=== PATIENT | female | born 1935 | race Caucasian/White ===

== ENCOUNTER → 2017-05-08 | Outpatient (CLI) | payer MEDICARE, BC ==
[~2017-05-08] MED LIST: ACTIVELLA1 TAB PO; ADULT LOW DOSE81 MG PO; AMITRIPTYLINE H10 M3 PO; AMITRIPTYLINE H50 M2 PO; AMLODIPINE BESYL5 M1 PO; ASPIRIN EC81 M1 PO; ASPIRIN325 PO; AXERT12.5 MG PO; BONIVA150 MG PO; CALCIUM 500 +1 EAC5 PO; CARVEDILOL12.5 MG; CARVEDILOL12.5 MG PO; CELEBREX 200 M200 MG PO; CLEOCIN HCL150 MG PO; CYMBALTA20 MG PO; CYMBALTA30 MG PO; CYMBALTA60 MG PO; DEXILANT60 MG PO; DILAUDID 2 MG TA2 MG PO; DILAUDID 4 MG TA4 M1 PO; DILAUDID 4 MG TA4 MG PO; DILAUDID PO; DOCUSATE SODIU100 MG PO; DOXYCYCLINE150 MG PO; ESTRADIOL; ESTRADIOL PO; ESTRADIOL-NORE1 EAC2 PO; FLEXERIL PO; FOLIC ACID 40400 MCG PO; FOLIC ACID PO; GABAPENTIN 100100 MG PO; GLUCOPHAGE1000 MG PO; GLUCOPHAGE500 MG PO; HYDROCHLOROTH12.5 M1 PO; HYDROCHLOROTH12.5 MG PO; HYDROCODON-ACE1 EAC5 PO; HYDROCODON-ACE1 EAC7 PO; IMITREX100 MG PO; IRON325 M1 PO; KETOCONAZOLE; KLOR-CON 1010 MEQ PO; LAMISIL AF133 GM TP; LANTUS SC; LASIX 40 MG TAB40 M2 PO; LEVOTHROID50 MCG PO; LEVOTHYROXINE0.05 MG PO; LISINOPRIL10 MG PO; LISINOPRIL20 MG PO; LYRICA 50 MG50 MG PO; MELATONIN PO; METFORMIN 500500 MG PO; METHADONE HCL 110 M1 PO; METHADONE HCL5 MG PO; MOBIC15 MG PO; MUCINEX D TABL1 EACH PO; MULTIVITAMINS PO; MYRBETRIQ25 MG PO; NEURONTIN 300300 M1 PO; NEURONTIN300 MG PO; NEURONTIN600 MG PO; NORETHINDRONE; NORETHINDRONE PO; NORVASC5 MG PO; NOVOLOG100 UNIT/1 SUBQ; NYAMYC15 GM TOP; NYSTATIN 1100000 U/M PO; ORADENT 0.1% DEN5 G1; OXYCODONE HCL 55 MG PO; OXYCODONE HCL20 M1 PO; OXYCONTIN CR 1010 M1; OXYCONTIN10 M1 PO; OXYCONTIN20 M1 PO; PAXIL10 MG PO; PERCOCET 7.5-31 EACH PO; PERCOCET PO; PHENERGAN 25 MG25 M1 PO; PRINIVIL20 M1 PO; PROBIOTIC1 EAC1 PO; PROTONIX40 M1 PO; RANITIDINE HCL300 M1 PO; REMERON15 MG PO; SKELAXIN 800 M800 M1 PO; SULFASALAZINE500 M1 PO; SULFASALAZINE500 M4 PO; SULFAZINE EC500 MG PO; SUMATRIPTAN SU100 MG PO; TERBINAFINE HC250 MG PO; TOUJEO SOL300 UNIT/1 SQ; TRICOR145 MG PO; VICODIN 5-5001 EACH PO; VITAMIN D 5050000 I1 PO; VITAMIN D1000 UNI1; VOLTAREN GEL 1100 G1 TOP; XARELTO10 M1 PO; ZEGERID 20 MG1 EACH PO; ZYRTEC10 MG PO
--- NOTE | 2017-05-09 10:21 | PAINCON ---
[facility] [address] [place] [address] PAIN MANAGEMENT CONSULTATION Name: ANNITA ODEN Room: [facility]#: [id number] Admission: 05/08/17 Attend Phys: Hernán Alfred Discharge: Date of : 37 Report #: [id number] THIS REPORT FOR: //name// CC: Gallito Oden HISTORY OF PRESENT ILLNESS: The patient is an 82-year-old female being treated for chronic pain syndrome, axial back pain, cervical radiculopathy, lumbar radiculopathy, myofascial pain requiring complex medication management. Last seen in pain clinic on 02/27/2017. The patient was continued on methadone 5 mg t.i.d., Percocet 7.5/325 t.i.d. for breakthrough pain. Buccal drug swab was accomplished at that time. The patient returns to pain clinic today noting medications are providing sufficient analgesia to participate in activities of daily living. Notes current pain score 8-9 on a VAS. Pain primarily right low back, right greater than left knee. Subjective weakness in both legs. She notes pain continues to be problematic though medication is helpful. She notes again pain is an 8-9 on a VAS. She does not use tobacco products. PHYSICAL EXAMINATION: VITAL SIGNS: Shows 5 feet 1 inch, 202 pounds female, BMI is elevated at 38.4 kilograms per meter squared. Blood pressure 160/71, pulse 70, respirations 18. NEUROLOGIC: Cranial nerves 2-12 are grossly intact. She had prior had a bleed in the left eye. Visual acuity is improving, but they are trying diligently to keep her blood pressure low. Subjective paresthesia in her hands, though this is intermittent, currently grasp is good and Tinel's is negative bilaterally. Rises from chair using the armrest. Gait is antalgic. She uses a walker and/or cane. Balance is poor, though she has not fallen in the last 2 months. Diffuse tenderness across the low back. Discussion with the patient today. She states she always uses a cane when she is outside. She does some "furniture walk" in the home. She uses a walker for longer ambulation. She notes medications are generally providing sufficient analgesia to participate in activities of daily living. No problems with daytime somnolence, mental acuity changes nor constipation. We reviewed the fact that opiate medications are being used to provide analgesia adequate to support activities of daily living, not attempting to achieve a specific pain score on the 0-10 Visual Analog Scale. The current opiate medications are providing sufficient analgesia to allow the patient to participate in activities of daily living. The patient is not exhibiting any aberrant behavior suggestive of drug diversion. The patient is not having any adverse reactions to medications. The patient is not suffering from daytime somnolence or mental acuity changes. The patient is managing opiate-induced constipation with appropriate foyw-imk[place] [address] PAIN MANAGEMENT CONSULTATION Name: ANNITA ODEN Room: [facility] Karolyn#: [id number] Admission: 05/08/17 Attend Phys: Hernán Alfred Discharge: Date of : 39 Report #: [id number] considerations. The patient was counseled on concern for caution with operating a motor vehicle while using opiate medications. A physical exam was performed and the patient's functional status was evaluated. All patients with back pain were advised against the bed rest greater than 4 days and were advised to return to normal activities. Pain score assessment was noted and the treatment plan was reviewed with the patient. All current medications, both prescribed and OTC were reviewed and reconciled on the electronic medical record. Tobacco screening was accomplished and smoking cessation was advised when indicated. BMI was noted and diet/exercise modification was recommended for all patients following outside normal parameters. I reviewed with the patient today their responsibilities to safeguard prescription medications, reviewed their responsibility to utilize medications only as prescribed by the physician. They are to seek and receive pain medications only from 1 physician group ( [facility]). They are to use 1 pharmacy and keep the clinic informed if they change pharmacies. Their responsibilities include making followup visits in a timely fashion and to avoid abrupt discontinuation of medication usage. Their responsibilities further include bringing their medications (bottles from the pharmacy with residual pills) to the visit for possible confirmation of pill counts and the patient understands it is their responsibility to submit to random drug screens to ensure both that the medications prescribed are present, and that no other controlled substances are present. All prescriptions provided today were generated electronically. ASSESSMENT: Chronic pain syndrome, history of both cervical and lumbar radiculopathy, myofascial pain requiring complex medication management, stable on baseline medication. RECOMMENDATION: I recommended the patient continue physical therapy, she was given exercises to do and she does some 4 or 5 out of 7 days at home. I have taken the liberty of renewing current medication unchanged. Follow up in 2 months for reevaluation. <ELECTRONICALLY SIGNED> By: Wolf Oden DO 05/09/17 1021 1217 1815Wolf Oden DO /nt
== END ==
LOC: M.PC 04-24 01:32
DX: M54.12 Radiculopathy, cervical region (principal); M54.16 Radiculopathy, lumbar region; M79.1 Myalgia; Z79.899 Other long term (current) drug therapy

== ENCOUNTER 2017-06-21 20:40 | Emergency (ER) | payer MEDICARE, BC ==
[~2017-06-21] VITALS: Ht 154.9 cm; Wt 92.3 kg
[~2017-06-21 20:40] MED LIST changes: -IMITREX100 MG PO; -LAMISIL AF133 GM TP; -NYAMYC15 GM TOP; -SUMATRIPTAN SU100 MG PO; -TERBINAFINE HC250 MG PO
[2017-06-21 20:55] VITALS: BP 203/83
[2017-06-21 21:31] LABS: ABSOLUTE BASOPHILS 0.1 thou/uL (0.0-0.2); ABSOLUTE EOSINOPHILS 0.8 thou/uL (0.0-0.7); ABSOLUTE LYMPHOCYTES 1.4 thou/uL (0.8-5.3); ABSOLUTE MONOCYTES 0.9 thou/uL (0.0-1.2); BASOPHILS 0.7 %; EOSINOPHILS 5.9 %; HEMATOCRIT 41.5 % (37.0-47.0); HEMOGLOBIN 13.5 gm/dL (12.0-15.0); MCH 31.1 pg (26.0-34.0); MCHC 32.6 g/dL (28.0-37.0); MCV 95.4 fL (80.0-100.0); MONOCYTES 6.9 %; MPV 8.8 fl. (7.2-11.1); NUCLEATED RBCS 0 /100WBC; PLATELET COUNT* 218 thou/uL (150-400); POLYS 75.5 %; RBC 4.35 mil/uL (4.20-5.00); RDW-CV 12.6 % (10.5-14.5); WBC 13.2 thou/uL (4.0-11.0)
[2017-06-21 21:32] LABS: URINE BILIRUBIN NEGATIVE (Negative); URINE BLOOD TRACE (Negative); URINE CLARITY CLEAR; URINE COLOR YELLOW; URINE GLUCOSE-RANDOM NEGATIVE (Negative); URINE KETONES NEGATIVE (Negative); URINE LEUKOCYTES-REFLEX NEGATIVE (Negative); URINE NITRITE-REFLEX NEGATIVE (Negative); URINE PROTEIN 1+ (Negative); URINE UROBILINOGEN 0.2 E.U./dl (0.2-1.0)
[2017-06-21 21:39] LABS: ANION GAP 5 mmol/L (7-16); BUN 18 mg/dL (7-18); CALCIUM 9.8 mg/dL (8.5-10.1); CHLORIDE 101 mmol/L (98-107); CO2 31 mmol/L (21-32); CREATININE 0.8 mg/dL (0.6-1.3); GLUCOSE 125 mg/dL (70-99); POTASSIUM 4.3 mmol/L (3.5-5.1); SODIUM 137 mmol/L (136-145)
[2017-06-21 21:46] LABS: ALBUMIN 3.5 g/dL (3.4-5.0); ALKALINE PHOSPHATASE 84 U/L (46-116); LIPASE 130 U/L (73-393); SGOT 21 U/L (15-37); SGPT 35 U/L (30-65); TOTAL BILIRUBIN 0.5 mg/dL (<0.1-1.0); TOTAL PROTEIN 7.3 g/dL (6.4-8.2); TROPONIN-I LEVEL <0.06 ng/mL (<0.06)
--- NOTE | 2017-06-22 01:28 | NUR ---
Risks of leaving against medical advice discussed with pt, understanding verbalized. AMA form signed at this time.
[2017-06-22 01:33] VITALS: BP 183/59
--- NOTE | 2017-06-22 14:37 | EKG ---
[place] [address] ELECTROCARDIOGRAM REPORT Name: ANNITA ODEN Room: [facility]#: [id number] Admission: 06/21/17 Attend Phys: Discharge: 06/22/17 Date of : 37 Report #: [id number] THIS REPORT FOR: //name// [facility] ED Test Date: 2017-06-21 Test Time: 21:15:14 Pat Name: ANNITA ODEN Department: Room: [facility] Gender: F General Scrap Worker: CECIL : 1935 Requested By: Rg Sheth Order Number: [id number] MD: Selvin Alves Measurements Intervals [place] Rate: 76 P: 52 LA: 172 QRS: -4 QRSD: 94 T: 75 QT: 371 QTc: 418 Interpretive Statements Sinus rhythm Probable left atrial enlargement Anterior infarct, old Compared to ECG 10/18/2014 18:50:34 Sinus tachycardia no longer present T-wave abnormality no longer present Possible ischemia no longer present Myocardial infarct finding still present Electronically Signed On 06-22-2017 14:37:16 CDT by Selvin Alves [email or web address] <ELECTRONICALLY SIGNED> By: Kareem Alves MD, [facility] 06/22/17 1437 14 14 Kareem Alves MD, [facility] /EPI
[2017-07-03] MEDS ORDERED: METHADONE HCL5 MG PO ×2 (10:31)
[2017-07-03] MEDS ORDERED: PERCOCET PO (10:31)
[2017-07-04] MEDS ORDERED: LAMISIL AF133 GM TP (15:11)
[2017-07-04] MEDS ORDERED: IMITREX100 MG PO (15:12)
[2017-08-28] MEDS ORDERED: NYAMYC15 GM TOP (09:59)
[2017-08-28] MEDS ORDERED: TERBINAFINE HC250 MG PO (09:59)
[2017-08-28] MEDS ORDERED: SUMATRIPTAN SU100 MG PO (10:00)
[2017-08-28] MEDS ORDERED: PROBIOTIC1 EAC1 PO (10:00)
[2017-08-28] MEDS ORDERED: PERCOCET PO (10:04)
[2017-08-28] MEDS ORDERED: METHADONE HCL5 MG PO ×4 (10:04→10:08)
[2017-10-24] MEDS ORDERED: PERCOCET PO (08:12)
[2017-10-24] MEDS ORDERED: METHADONE HCL5 MG PO ×3 (08:12→09:06)
[2017-11-21] MEDS ORDERED: PERCOCET PO (08:17)
[2017-11-21] MEDS ORDERED: METHADONE HCL5 MG PO ×3 (08:17→09:00)
[2017-12-19] MEDS ORDERED: METHADONE HCL5 MG PO ×4 (08:17→08:33)
[2017-12-19] MEDS ORDERED: PERCOCET PO ×2 (08:17→08:33)
[2018-01-16] MEDS ORDERED: PERCOCET PO (09:09)
[2018-01-16] MEDS ORDERED: METHADONE HCL5 MG PO ×2 (09:09)
== END 2017-06-22 01:34 | disposition left against medical advice (07) ==
LOC: M.ERS 20:40 → M.TBA-ER 23:05 → M.ERS 23:05
PROVIDERS: Emergency Medicine Emergency Medical Services
DX: K56.699 Other intestinal obstruction unspecified as to partial versus complete obstruction (principal); Z96.652 Presence of left artificial knee joint; E11.9 Type 2 diabetes mellitus without complications; Z88.5 Allergy status to narcotic agent; Z88.1 Allergy status to other antibiotic agents; Z88.0 Allergy status to penicillin; Z88.2 Allergy status to sulfonamides; Z88.8 Allergy status to other drugs, medicaments and biological substances

== ENCOUNTER → 2017-07-03 | Outpatient (CLI) | payer MEDICARE, BC ==
[~2017-07-03] MED LIST changes: +IMITREX100 MG PO; +LAMISIL AF133 GM TP; +NYAMYC15 GM TOP; +SUMATRIPTAN SU100 MG PO; +TERBINAFINE HC250 MG PO
--- NOTE | 2017-07-04 09:37 | PAINCON ---
[facility] [address] [place] [address] PAIN MANAGEMENT CONSULTATION Name: ANNITA ODEN Room: [facility]#: [id number] Admission: 07/03/17 Attend Phys: Hernán Alfred Discharge: Date of : 37 Report #: [id number] THIS REPORT FOR: //name// CC: Gallito Oden DATE OF SERVICE: 07/03/2017 The patient is an 82-year-old female being treated for chronic pain syndrome, axial back pain, history of cervical and lumbar radiculopathy requiring complex medication management. Last seen in the Pain Clinic on 05/08/2017. Continued on methadone 5 mg t.i.d., Percocet 7.5/325 t.i.d. Last random drug screen 02/27/2017 was positive prescribed medications. In the interval, since we last saw her, she was seen in the ER on 06/21/2017 for a blocked stoma. This was treated in the ER and she was discharged. She returns to pain clinic today noting medications continue to provide sufficient analgesia to participate in activities of daily living. Though she has remained fairly sedentary, she does walk her dog about 30 minutes twice a day. She does have some daytime somnolence. She attributes this to the fact that she "does not sleep at night." She states she does take a daily nap anywhere from 30 minutes to 2 hours, so I suspect she is getting adequate sleep overall. She discontinued Lyrica and Myrbetriq due to "terrible thoughts." States she has done reasonably well with current medication. We reviewed the fact that opiate medications are being used to provide analgesia adequate to support activities of daily living, not attempting to achieve a specific pain score on the 0-10 Visual Analog Scale. The current opiate medications are providing sufficient analgesia to allow the patient to participate in activities of daily living. The patient is not exhibiting any aberrant behavior suggestive of drug diversion. The patient is not having any adverse reactions to medications. The patient is not suffering from daytime somnolence or mental acuity changes. The patient is managing opiate-induced constipation with appropriate cvfa-hii-eaupxeb agents and dietary considerations. The patient was counseled on concern for caution with operating a motor vehicle while using opiate medications. A physical exam was performed and the patient's functional status was evaluated. All patients with back pain were advised against the bed rest greater than 4 days and were advised to return to normal activities. Pain score assessment was noted and the treatment plan was reviewed with the patient. All current medications, both prescribed and OTC [place] [address] PAIN MANAGEMENT CONSULTATION Name: ANNITA ODEN [id number] Admission: 07/03/17 Attend Phys: Hernán Alfred Discharge: Date of : 37 Report #: [id number] electronic medical record. Tobacco screening was accomplished and smoking cessation was advised when indicated. BMI was noted and diet/exercise modification was recommended for all patients following outside normal parameters. I reviewed with the patient today their responsibilities to safeguard prescription medications, reviewed their responsibility to utilize medications only as prescribed by the physician. They are to seek and receive pain medications only from 1 physician group ( [facility]). They are to use 1 pharmacy and keep the clinic informed if they change pharmacies. Their responsibilities include making followup visits in a timely fashion and to avoid abrupt discontinuation of medication usage. Their responsibilities further include bringing their medications (bottles from the pharmacy with residual pills) to the visit for possible confirmation of pill counts and the patient understands it is their responsibility to submit to random drug screens to ensure both that the medications prescribed are present, and that no other controlled substances are present. All prescriptions provided today were generated electronically. PHYSICAL EXAMINATION: Reveals a moderately obese 82-year-old female, BMI is 38 kg/m2. Blood pressure 161/57, pulse is 85, respirations 16. Subjective pain score is 5 on a VAS. Complains of pain across the back and bilateral knees. Ostomy working well. Rises from chair using armrest. Gait is tandem. The patient is again quite sedentary. She does use a walker to help with balance when she is outside. The patient reports about 50% improvement of baseline pain with current medication. She does use Cymbalta 30 mg at bedtime. ASSESSMENT: Chronic axial back pain. The patient with history of lumbar and cervical radiculopathy and chronic pain syndrome. RECOMMENDATION: Continue methadone 5 mg t.i.d., Percocet 7.5/325 up to t.i.d. I have taken the liberty of writing for 2 months of current medication. Follow up at that time or earlier if needed. <ELECTRONICALLY SIGNED> By: Wolf Oden DO 07/04/17 0937 1517 [id number] Oden DO /nt
== END ==
LOC: M.PC 04:37
DX: G89.4 Chronic pain syndrome (principal); M54.16 Radiculopathy, lumbar region; M54.12 Radiculopathy, cervical region

== ENCOUNTER → 2017-07-05 | Outpatient (CLI) | payer MEDICARE, BC | LOC: M.RAD 08:35 | DX: K59.00 Constipation, unspecified (principal); K52.9 Noninfective gastroenteritis and colitis, unspecified ==

== ENCOUNTER → 2017-08-28 | Outpatient (CLI) | payer MEDICARE, BC ==
--- NOTE | 2017-08-29 07:56 | PAINCON ---
[address] [address] PAIN MANAGEMENT CONSULTATION Name: ANNITA ODEN Room: [facility]#: [id number] Admission: 08/28/17 Attend Phys: Hernán Alfred Discharge: Date of : 37 Report #: [id number] THIS REPORT FOR: //name// CC: Gallito Oden DATE OF SERVICE: 08/28/2017 HISTORY OF PRESENT ILLNESS: The patient is an 82-year-old female being treated for axial back pain, both cervical and lumbar decompressive laminectomies, chronic pain syndrome requiring complex medication management. Last seen in the pain clinic on 07/03/2017, continued on methadone 5 mg t.i.d., Percocet 7.5/325 t.i.d. Equates to a little under 15 mg morphine equivalent daily. Last random drug screen on 02/27/2017 was positive for prescribed medications. The patient returns to the pain clinic today noting that she gets easily fatigued with exertion. She does, however, continue to walk her dog 2 days a week. She started to do some pool therapy once a week. She uses a cane or walker 100% of the time when outside of the house. She does have some problems with daytime somnolence, but no problems with mental acuity changes or constipation. Rates her subjective pain score as 6 on a VAS. PHYSICAL EXAMINATION: VITAL SIGNS: Blood pressure is 146/85, pulse 72, respirations are 18, BMI is elevated at 40 kilograms per meter squared. MUSCULOSKELETAL: Diffuse tenderness across the low back. Lower extremity strength is preserved. No tenderness in the knees, though no ballottable edema is noted. ASSESSMENT: Chronic pain syndrome requiring complex medication management. Comorbidities of axial back pain, cervical and lumbar radiculopathies stable on baseline medication. RECOMMENDATIONS: Continue current medication unchanged, methadone 5 mg t.i.d., Percocet 7.5/325 t.i.d. I have taken the liberty of writing for 2 months of current medication. Follow up with Dr. Alex Villarreal. <ELECTRONICALLY SIGNED> By: Wolf Oden DO 08/29/17 0756 1311 0318Wolf Oden DO /nt
== END ==
LOC: M.PC 04:14
DX: M54.16 Radiculopathy, lumbar region (principal); M54.12 Radiculopathy, cervical region; G89.4 Chronic pain syndrome; Z79.899 Other long term (current) drug therapy

== ENCOUNTER → 2017-10-24 | Outpatient (CLI) | payer MEDICARE, BC ==
--- NOTE | 2017-10-25 08:37 | PAINCON ---
[address] [address] PAIN MANAGEMENT CONSULTATION Name: ANNITA ODEN [id number] Admission: 10/24/17 Attend Phys: Sabine Villarreal MD Discharge: Date of : 39 Report #: [id number] THIS REPORT FOR: //name// CC: Sabine Goodrich DATE OF SERVICE: 10/24/2017 HISTORY OF PRESENT ILLNESS: The patient is an 82-year-old female who has been followed in the pain clinic by Dr. Wolf Oden. She has a history of low back pain. States that she has a history of fibromyalgia as well. Has pain of a global nature. It involves her arms, legs, ankles, hips as well as her muscles. She has been treated with a complex medical regimen of opioid medications and finds that these medications are helpful. She remains active. States that she lives in a assisted facility. She likes to go down and do aerobic type activities in the pool. She feels her pain level has increased. The patient was on methadone 5 mg t.i.d. Her dose has been decreased to 5 mg daily. She has noticed a worsening in her conditioning and has increased pain and discomfort with walking, sitting, standing, lifting and bending. Rates her pain as 5/10 at this juncture. Can rise to the level of 9 and when it rises that level she states that she cries. Has not had problems with her medications. Has not found that the medications caused increased sedation. PAST MEDICAL HISTORY: 1. Rheumatic fever 2. Diabetes. 3. Hypertension. 4. Thyroid disease. 5. Colon problems. 6. Stomach problem. 7. Emotional problem. 8. Joint problems. 9. Ileostomy. 10. Vertebral compression fractures. 11. Neuropathic pain. 12. Colitis. 13. Diabetes type 2. PAST SURGICAL HISTORY: 1. Tonsils in 1948. Biopsy of left breast removed noncancerous lump. 2. Right knee arthroscopy. 3. Ileostomy x2. 4. Left knee replacement. REVIEW OF SYSTEMS: Denies constitutional problems for respiratory, gastrointestinal [place] [address] PAIN MANAGEMENT CONSULTATION Name: AKSHATANNITA G Room: [facility]#: [id number] Admission: 10/24/17 Attend Phys: Sabine Villarreal MD Discharge: Date of : 39 Report #: [id number] ALLERGIES: FENTANYL, INDOMETHACIN, LEVAQUIN, MORPHINE, RELAFEN, PENICILLIN, FELDENE, BACLOFEN, HYDRALAZINE. CURRENT MEDICATIONS: Multivitamin, calcium, aspirin 81 mg, estradiol, levothyroxine 0.5 mg, amlodipine, Boniva, folic acid 400 mcg, Cymbalta, Coreg 12.5, vitamin D, Protonix 40 mg, Myrbetriq, the patient has stopped taking that medication. PAIN CLINIC ASSESSMENT: 1. History of osteoarthritis involving the left knee. 2. Height 4 feet 11 inches. 3. Weight 206 pounds. 4. BMI is 41. 5. Vital signs, blood pressure 143/73, heart rate 73, respiratory rate 18, room air saturation 90, temperature 98.4. 6. Pain 5/10. 7. Fall risk. The patient has not fallen in the last 3 months. 8. Blood thinner. The patient is on no blood thinning medication. 9. Hypertension. The patient is being treated for hypertension. 10. Opiate therapy greater than 6 weeks. 11. The patient gets medication from the pain clinic. 12. Risk assessment tool. 13. Functional assessment tool. 14. Recreational drug use. The patient denies use of recreational drugs. 15. Tobacco: The patient stopped smoking at age 51. Smokes 3 packs per day. 16. Alcohol: The patient denies use of alcoholic beverage. PHYSICAL EXAMINATION: GENERAL: The patient is well-developed, well-nourished white female. Appears her stated age. She is somewhat obese. Affect is appropriate. Speech is fluent. HEAD, EYES, EARS, NOSE, AND THROAT: Normocephalic, atraumatic. Extraocular eye muscles intact. Sclerae nonicteric. Hearing was within normal limits. Mucous membranes are moist. NECK: Without adenopathy or JVD. HEART: Regular rate. ABDOMEN: Protuberant. CHEST: Clear to auscultation. Upper extremity muscle strength is judged to be 4+/5 for the major muscle groups with the patient without significant scoliosis, kyphosis, lordosis, have pain and discomfort in the lower portion of her back, has some generalized muscle discomfort in the lower extremities. IMPRESSION: 1. Chronic pain with history of fibromyalgia. 2. Diabetes type 2. [place] [address] PAIN MANAGEMENT CONSULTATION Name: ANNITA ODEN [facility] [id number] Admission: 10/24/17 Attend Phys: Sabine Villarreal MD Discharge: Date of : 39 Report #: [id number] 3. 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 4. Neuropathic pain. 5. History of lumbar radiculopathy secondary to spinal stenosis. 6. History of vertebral compression fractures. 7. History of Crohn's disease. RECOMMENDATIONS: We discussed treatment option with the patient. The patient has been using opioid medications for help with her pain. She feels that the Percocet medication is helpful. She was on methadone 3 tablets of 5 mg 3 times a day. She has reduced the dose. She has noticed a worsening of her pain. She is unable to engage in activities to the level that she would like. At this juncture, we will have the patient resume methadone at 5 mg b.i.d. She will follow up in a month. Hopefully, she will find that things continue to improve. <ELECTRONICALLY SIGNED> By: Sabine Villarreal MD 10/25/17 0837 0916 0955N. Alex Villarreal MD /[facility]
== END ==
LOC: M.PC 04:58
DX: M54.16 Radiculopathy, lumbar region (principal); E11.9 Type 2 diabetes mellitus without complications; G89.29 Other chronic pain; K50.90 Crohn's disease, unspecified, without complications; Z79.899 Other long term (current) drug therapy

== ENCOUNTER → 2017-11-21 | Outpatient (CLI) | payer MEDICARE, BC ==
--- NOTE | 2017-12-23 10:00 | PAINCON ---
[address] [address] PAIN MANAGEMENT CONSULTATION Name: ANNITA ODEN [id number] Admission: 11/21/17 Attend Phys: Sabine Villarreal MD Discharge: Date of : 39 Report #: [id number] THIS REPORT FOR: //name// CC: Sabine Goodrich DATE OF SERVICE: 11/21/2017 CHIEF COMPLAINT: Here for medication renewal. FOLLOWUP HISTORY: The patient is a very pleasant 82-year-old female. She has a history of low back pain. She has been followed in the Pain Clinic because of fibromyalgia as well. Finds that she has pain, which involves her arms, legs, hips and other muscles. She has been treated with complex medical regimen of opioid medications. She finds that her medications continued to be helpful. She lives in a alf facility. She states that she likes to stay active. She has found that methadone as well as oxycodone have been helpful. Notes that her pain is exacerbated with walking, sitting, standing, lifting and other activities. Rates her pain today at about 5. ALLERGIES: FENTANYL, INDOMETHACIN, LEVAQUIN, MORPHINE, RELAFEN, PENICILLIN, FELDENE, BACLOFEN, HYDRALAZINE. CURRENT MEDICATIONS: Calcium, multivitamin, aspirin 81 mg, estradiol, levothyroxine 0.5 mg, amlodipine, Boniva, folic acid 400 mcg, Cymbalta, Coreg 12.5, vitamin D, Protonix 40 mg, Myrbetriq. She has stopped taking this medication. PAIN CLINIC ASSESSMENT: 1. History of osteoarthritis involving the left knee. 2. Height 4 feet 11 inches, weight 206 pounds. 3. BMI is 41. 4. Vital signs: Blood pressure 140/70, heart rate 70, respiratory rate 20, room air saturation 90%/89%, temperature 98.4. 5. Pain intensity 5/10. 6. Fall risk. The patient has not fallen in the last 3 months. 7. Blood thinner. The patient is not on any blood thinning medication. 8. Hypertension. The patient is being treated for hypertension. 9. Opioid therapy greater than 6 weeks. The patient gets her medications from one source, the Pain Clinic. 10. Risk assessment tool. 11. Functional assessment for: 12. Recreational drug use. The patient denies use of recreational drugs. 13. Tobacco: The patient stopped smoking at age 51. She has smoked 3 packs of cigarettes per day. 14. Alcohol: The patient denies use [place] [address] PAIN MANAGEMENT CONSULTATION Name: ANNITA ODEN Room: [facility]#: [id number] Admission: 11/21/17 Attend Phys: Sabine Villarreal MD Discharge: Date of : 37 Report #: [id number] PHYSICAL EXAMINATION: GENERAL: The patient is a well-developed, well-nourished white female. She appears her stated age. She is somewhat obese. Her affect is appropriate. Speech is fluent. HEENT: Normocephalic, atraumatic. Extraocular eye muscles intact. Sclerae nonicteric. Hearing is within normal limits. Mucous membranes are moist. NECK: Without adenopathy or JVD. HEART: Regular rate. ABDOMEN: Protuberant. CHEST: Generally clear to auscultation with decreased respiratory effort. EXTREMITIES: Upper extremity muscle strength is judged to be 4/5 for the major muscle groups. Lower extremity, the patient's strength is 4/5. MUSCULOSKELETAL: The patient is without significant scoliosis or lordosis. She has some kyphosis present. IMPRESSION: 1. Chronic pain with history of fibromyalgia. 2. Hypoxia/low oxygen saturation. 3. Diabetes type 2. 4. Degenerative joint disease involving the right knee. 5. Neuropathic pain. 6. History of lumbar radicular pain secondary to spinal stenosis. 7. History of vertebral compression fractures. 8. History of Crohn's disease. RECOMMENDATIONS: We discussed treatment options with the patient and her son. The patient is on methadone. She feels that this medication is beneficial. She takes one tablet 5 mg twice a day. Also finds that the Percocet is helpful. She takes it up to 3 times per day. Does have some hypoxemia/oxygen saturation levels of 90 during the evaluation. I would recommend that the patient try incentive spirometry. With her body habitus, she appears to be chronically leaning forward and probably had an atelectatic areas in the left and right lung bases. Hopefully incentive spirometry will increase her O2 saturations. We also explain to the patient and her son the association between atelectatic areas and development of pneumonia. We are about to go into the fall period of the year. Hopefully, if she improves her respiratory status, she would lessen the chance that she would have problems/development of pneumonia later on in the year. We would like to thank you for letting us participate in her care. We hope she continues to improve. <ELECTRONICALLY SIGNED> By: Sabine Villarreal MD 12/23/17 1000 [id number]. Alex Villarreal MD /nt
== END ==
LOC: M.PC 03:59
DX: M25.552 Pain in left hip (principal); M25.551 Pain in right hip; M79.602 Pain in left arm; M79.601 Pain in right arm; M79.605 Pain in left leg; M79.604 Pain in right leg; R09.02 Hypoxemia; E11.9 Type 2 diabetes mellitus without complications; M17.11 Unilateral primary osteoarthritis, right knee; K50.00 Crohn's disease of small intestine without complications; M79.2 Neuralgia and neuritis, unspecified; M48.07 Spinal stenosis, lumbosacral region; Z79.899 Other long term (current) drug therapy; Z87.81 Personal history of (healed) traumatic fracture

== ENCOUNTER → 2017-12-18 | Outpatient (CLI) | payer MEDICARE, BC ==
--- NOTE | 2017-12-18 12:39 | 2DMMODE ---
[place] [address] 2 D/M-MODE ECHOCARDIOGRAM Name: ANNITA ODEN Room: [facility]#: [id number] Admission: 12/18/17 Attend Phys: Hernán Butcher Discharge: Date of : 39 Date of Service: 12/18/17 1238 Report #: [id number] THIS REPORT FOR: //name// APPROVED REPORT Study performed: 12/18/2017 08:09:11 EXAM: Comprehensive 2D, Doppler, and color-flow Echocardiogram Patient Location: Out-Patient Status: routine BSA: 1.89 HR: 74 bpm Other Information Study Quality: Fair Indications Dyspnea 2D Dimensions IVSd: 13.39 (7-11mm) LVOT Diam: 20.43 (18-24mm) LVDd: 49.04 mm PWd: 12.44 (7-11mm) Ascending Ao: 28.70 (22-36mm) LVDs: 26.78 (25-40mm) Aortic Root: 25.91 mm Volumes Left Atrial Volume (Systole) LA ESV Index: 23.50 mL/m2 Aortic Valve AoV Peak Howard.: 2.62 m/s AO Peak Gr.: 27.49 mmHg LVOT Max P.98 mmHg AO Mean Gr.: 16.13 mmHg LVOT Mean P.02 mmHg LVOT Max V: 1.58 m/s AO V2 VTI: 55.50 cm LVOT Mean V: 1.02 m/s LAWRENCE (VTI): 2.26 cm2 LVOT V1 VTI: 38.31 cm AI Dillon: 2.37 m/s2 AI PHT: 450.27 ms Mitral Valve MV Peak Gr.: 11.22 mmHg MV Mean Gr.: 5.35 mmHg E/A Ratio: 0.82 [place] [address] 2 D/M-MODE ECHOCARDIOGRAM Name: ANNITA ODEN Room: [facility]#: [id number] Admission: 12/18/17 Attend Phys: Hernán Butcher Discharge: Date of : 39 Date of Service: 12/18/17 1238 Report #: [id number] MV Decel. Time: 360.52 ms MV E Max Howard.: 1.16 m/s MV PHT: 104.55 ms MVA (PHT): 2.10 cm2 TDI E/Lateral E': 16.57 E/Medial E': 16.57 Medial E' Howard.: 0.07 m/s Lateral E' Howard.: 0.07 m/s Pulmonary Valve PV Peak Howard.: 1.02 m/s PV Peak Gr.: 4.18 mmHg Left Ventricle The left ventricle is normal size. There is normal LV segmental wall motion. Mild to moderate concentric left ventricular hypertrophy. Left ventricular systolic function is normal. The left ventricular ejection fraction is within the normal range. LVEF is 65-70%. Grade I - abnormal relaxation pattern. Right Ventricle The right ventricle is normal size. The right ventricular systolic function is normal. Atria The left atrium size is normal. The right atrium size is normal. Aortic Valve Mild aortic valve sclerosis. Moderate aortic regurgitation. Mild aortic stenosis. Mitral Valve Moderate mitral annular calcification. Mild mitral regurgitation. No evidence of mitral valve stenosis. Tricuspid Valve The tricuspid valve is normal in structure. There is no tricuspid valve regurgitation noted. Pulmonic Valve Pulmonic valve is not well visualized. There is no pulmonic valvular regurgitation. Great Vessels The aortic root is normal in size. IVC [place] [address] 2 D/M-MODE ECHOCARDIOGRAM Name: ANNITA ODEN Rupesh Room: [facility]#: [id number] Admission: 12/18/17 Attend Phys: Hernán Butcher Discharge: Date of : 39 Date of Service: 12/18/17 1238 Report #: [id number] collapses >50% with inspiration. Pericardium There is no pericardial effusion. <Conclusion> Mild to moderate concentric left ventricular hypertrophy. LVEF is 65-70%. Mild aortic stenosis. Moderate aortic regurgitation. Mild mitral regurgitation. <ELECTRONICALLY SIGNED> By: Hector Osorio MD, FACC 12/18/17 1238 1238 1238 Hector Osorio MD, FACC /INF
== END ==
LOC: M.CRD 08:00
DX: I35.0 Nonrheumatic aortic (valve) stenosis (principal); I34.0 Nonrheumatic mitral (valve) insufficiency; R06.09 Other forms of dyspnea

== ENCOUNTER → 2017-12-19 | Outpatient (CLI) | payer MEDICARE, BC ==
--- NOTE | 2017-12-23 10:00 | PAINCON ---
[address] [address] PAIN MANAGEMENT CONSULTATION Name: ANNITA ODEN [id number] Admission: 12/19/17 Attend Phys: Sabine Villarreal MD Discharge: Date of : 39 Report #: [id number] THIS REPORT FOR: //name// CC: Sabine Goodrich DATE OF SERVICE: 12/19/2017 FOLLOWUP COMPLAINT: Chronic pain and fibromyalgia. HISTORY OF PRESENT ILLNESS: The patient is an 82-year-old female who has been followed in the pain clinic because of history of low back pain. She has been treated for fibromyalgia. Has pain that involves a number of areas. Her arms, legs, hips and muscles or toes, which are involved. She has been treated with a complex medical regimen of opioids. Find these medications continue to be helpful. As you recall, she lives in a nursing facility. She does try to stay active. She feels that the methadone is helpful. She has noticed increased pain with walking, sitting, standing, lifting and other activities. Rates her pain today as a 7/10. Notes that the pain somewhat low and can increase. The patient notes improvement after taking her medications. Notes that the pain can increase as the day goes on. She states that she is having some problem with shortness of breath. She has been worked up by her primary doctor. She did have an echo performed a few days ago, the results of which she is not aware of. ALLERGIES: FENTANYL, INDOMETHACIN, LEVAQUIN, MORPHINE, RELAFEN, PENICILLIN, FELDENE, BACLOFEN, HYDRALAZINE. CURRENT MEDICATIONS: Calcium, multivitamin, aspirin 81 mg, estradiol, levothyroxine 0.5 mg, amlodipine, Boniva, folic acid 400 mcg, Cymbalta, Coreg 12.5, vitamin D, Protonix 40 mg, Myrbetriq. PAIN CLINIC/PQRS: 1. The patient has a history of osteoarthritic change involving her left knee. She is not being treated for rheumatoid arthritis. 2. Height 4 feet 11 inches, weight 212 pounds, BMI is 42.9. 3. Vital signs: Blood pressure 147/66, heart rate 70, respiratory rate 16, room air saturation 90%, temperature 97.7. 4. Pain intensity 8-9/10 depending on level of activity. 5. Fall risk. The patient has not fallen in the last 3 months. 6. Hypertension. The patient is being treated for hypertension. 7. Blood thinner. The patient is not on a blood thinning medication. 8. Risk assessment tool, low for use of opioid drug medications. 9. Functional assessment tool. 10. Recreational drug use. The patient denies use of recreational drugs. 11. Tobacco. The patient stopped smoking at age 21. Smokes 3 packs of cigarettes per [place] [address] PAIN MANAGEMENT CONSULTATION Name: ANNITA ODEN [id number] Admission: 12/19/17 Attend Phys: Sabine Villarreal MD Discharge: Date of : 39 Report #: [id number] 12. Alcohol: The patient denies use of alcoholic beverages. PHYSICAL EXAMINATION: GENERAL: The patient is a well-developed, well-nourished white female. Appears her stated age. She is alert and oriented x3. Her affect is appropriate. Speech is fluent. She is accompanied by her son. HEAD, EYES, EARS, NOSE, AND THROAT: Normocephalic, atraumatic. Extraocular eye muscles intact. Sclerae nonicteric. Hearing is within normal limits. Mucous membranes are moist. HEART: Regular rate. ABDOMEN: Protuberant. Bowel sounds present. CHEST: Clear to auscultation without respiratory effort affected. EXTREMITIES: Lower extremity, the patient has muscle strength 4/5. Use her hands to go from a sitting to a standing position. The patient is without significant scoliosis, kyphosis or lordosis. Some kyphosis is noted. IMPRESSION: 1. Chronic pain. 2. History of fibromyalgia. 3. Hypoxia, low oxygen saturations 90 today. The patient is being worked up by her primary. 4. Diabetes type 2. 5. Degenerative arthritis involving the right knee. 6. Neuropathic pain. 7. Lumbar radicular pain secondary to spinal stenosis. 8. Vertebral compression fractures. 9. History of Crohn's disease. RECOMMENDATIONS: We discussed treatment options with the patient. At this juncture, we will continue with her current medications. She finds that the methadone as well as oxycodone p.r.n. Continue to be efficacious and enable her to do more during the day than she would be able to without their use. She feels that the medications are helpful. She does not have any problems with them. She will follow up in about one month. She overall feels that things are 50% better with the current medical regimen. A script for her medication of Percocet 5/325 one p.o. t.i.d. and methadone 5 mg 1 p.o. b.i.d. have been renewed. <ELECTRONICALLY SIGNED> By: Sabine Villarreal MD 12/23/17 1000 [id number]. MD DK Jung
== END ==
LOC: M.PC 05:16
DX: G89.29 Other chronic pain (principal); M79.7 Fibromyalgia; R09.02 Hypoxemia; E11.9 Type 2 diabetes mellitus without complications; M79.2 Neuralgia and neuritis, unspecified; M48.061 Spinal stenosis, lumbar region without neurogenic claudication; M13.861 Other specified arthritis, right knee; Z87.19 Personal history of other diseases of the digestive system

== ENCOUNTER → 2018-01-15 | Outpatient (CLI) | payer MEDICARE, BC | LOC: M.LAB 10:30 → M.CT 11:30 | DX: I25.10 Atherosclerotic heart disease of native coronary artery without angina pectoris (principal); I70.0 Atherosclerosis of aorta ==

== ENCOUNTER → 2018-01-16 | Outpatient (CLI) | payer MEDICARE, BC ==
--- NOTE | ~2018-01-16 | PAINCON ---
[address] [address] PAIN MANAGEMENT CONSULTATION Name: ANNITA ODEN [facility] [id number] Admission: 01/16/18 Attend Phys: Sabine Villarreal MD Discharge: Date of : 37 Report #: [id number] THIS REPORT FOR: //name// CC: Sabine Goodrich DATE OF SERVICE: 01/16/2018 CHIEF COMPLAINT: Here for medication renewal. FOLLOWUP HISTORY: The patient is an 82-year-old female who has been followed in the pain clinic because of chronic low back pain. She has fibromyalgia. Has pain in number of areas involving her arms, legs, hips muscles in the lower extremity. She has been treated over time with a complex medical regimen of opioid medications and finds that this enables her to be more active. She lives in a nursing facility. Continues to try to stay active. She feels that her methadone medication is helpful. Note that she has pain while walking, sitting, standing, lifting and doing other activities of daily living. Rates her pain today as an 8/10 when it is worse and mostly 5/10 at this juncture. She has had some problems with her breathing. She was using a spirometer. Has worked on her breathing, but is not using the spirometry device at this juncture. States that her primary physician has worked her up for possibility of pulmonary embolus. There was no pathology found. Where pain is problematic, she states it feels like she has "been hit with a board". States that an echocardiogram of her heart today was "okay". She has returned today with the desire to have her medications renewed. ALLERGIES: FENTANYL, INDOMETHACIN, LEVAQUIN, MORPHINE, RELAFEN, PENICILLIN, FELDENE, BACLOFEN, and HYDRALAZINE. CURRENT MEDICATIONS: Calcium, multivitamins, aspirin, estradiol, levothyroxine 0.5 mg, amlodipine, Boniva, folic acid 400 mcg, Cymbalta, Coreg 12.5, vitamin D, Protonix, Myrbetriq. PAIN CLINIC EVALUATION/PQRS: 1. History of osteoarthritis. The patient has arthritic changes in her left knee. She has not been treated for rheumatoid arthritis. 2. Height 5 feet 11 inches, weight 214 pounds, BMI is 43.4. 3. Vital signs: Blood pressure 149/76, heart rate 80, respiratory rate 18, room air saturation 94%, temperature 98.1. 4. Pain intensity 5-8/10. 5. Fall risk. The patient has not fallen in the last 3 months. 6. Blood thinner. The patient is not on a blood thinning medication. 7. Hypertension. The patient is being treated for hypertension. 8. Opioids greater than 6 weeks. The patient receives her medication from [place] source, [place] [address] PAIN MANAGEMENT CONSULTATION Name: ANNITA ODEN Room: [facility]#: [id number] Admission: 01/16/18 Attend Phys: Sabine Villarreal MD Discharge: Date of : 37 Report #: [id number] 9. Risk assessment tool, low for opioid use. 10. Functional assessment tool. 11. Recreational drug use. The patient denies use of recreational drugs. 12. Tobacco: The patient has not smoked since she was in her 40s. 13. Alcohol: The patient denies use of alcoholic beverages. PHYSICAL EXAMINATION: GENERAL: The patient is a well-developed, well-nourished white female. Appears her stated age. She is alert and oriented x 3. Her affect is appropriate. Speech is fluent. She is accompanied by a friend. HEENT: Normocephalic, atraumatic. Extraocular eye muscles intact. Sclerae nonicteric. Mucous membranes are moist. Hearing is within normal limits. HEART: Regular rate. ABDOMEN: Protuberant. Bowel sounds present. CHEST: Clear to auscultation. EXTREMITIES: Upper and lower 4/5 for the major muscle groups. The patient use her hands go from a sitting to a standing position. The patient is without significant scoliosis or lordosis. Has some kyphosis noted. IMPRESSION: 1. Chronic pain. 2. History of fibromyalgia. 3. Hypoxia, low oxygen saturation is 90. The patient states that she has been worked up by her primary. 4. Diabetes type 2. 5. Degenerative arthritis involving the right knee. 6. Neuropathic pain. 7. Lumbar radicular pain secondary to spinal stenosis. 8. Vertebral compression fractures. 9. History of Crohn's disease. RECOMMENDATIONS: We discussed treatment options with the patient. At this juncture, we will continue with her current medical regimen of methadone 5 mg 1 p.o. b.i.d. and Percocet 5/325 one p.o. t.i.d. The patient will continue with her medication. She feels that she gets 50% improvement in her pain. She states that she is breathing reasonably well at this juncture. Her primary continues to work on her reasons for low saturation. She will call us if she has any concerns. A script for her medications of Percocet 1 p.o. t.i.d. and methadone 5 mg 1 p.o. b.i.d. has been written. We would like to thank you for letting us participate in her care. By: 1714 [id number]. Alex Villarreal MD /sharri
== END ==
LOC: M.LAB 01-15 10:30 → M.PC 05:09
DX: S32.000D Wedge compression fracture of unspecified lumbar vertebra, subsequent encounter for fracture with routine healing (principal); M54.16 Radiculopathy, lumbar region; M17.11 Unilateral primary osteoarthritis, right knee; G89.29 Other chronic pain; E11.40 Type 2 diabetes mellitus with diabetic neuropathy, unspecified; M79.7 Fibromyalgia; R09.02 Hypoxemia; K50.90 Crohn's disease, unspecified, without complications; G62.9 Polyneuropathy, unspecified; X58.XXXD Exposure to other specified factors, subsequent encounter; Z79.899 Other long term (current) drug therapy

== ENCOUNTER → 2018-03-13 | Outpatient (CLI) | payer MEDICARE, BC ==
--- NOTE | ~2018-03-13 | PAINCON ---
[address] [address] PAIN MANAGEMENT CONSULTATION Name: AKSHATANNITA G Room: [facility]#: [id number] Admission: 03/13/18 Attend Phys: Sabine Villarreal MD Discharge: Date of : 37 Report #: [id number] THIS REPORT FOR: //name// CC: Sabine Goodrich DO DATE OF SERVICE: 03/13/2018 CHIEF COMPLAINT: Here for medication renewal. FOLLOWUP HISTORY: The patient is an 82-year-old female who has been followed in the pain clinic because of chronic pain. She has fibromyalgia. Also, has pain in areas including arms, legs, hips, and lower extremity. She has generalized back pain as well. The patient continues to have some problems with breathing. She has been followed up by her tufter. States that the tufter has evaluated her and does not think it is primarily a lung problem. She is scheduled to go and see a health education teacher. An Echo has been done to evaluate things. She has been told that she may have a leaky valve. She had a history of murmur because of her rheumatic fever history as a young person. She has started on an inhalers. ALLERGIES: FENTANYL, INDOMETHACIN, LEVAQUIN, MORPHINE, RELAFEN, PENICILLIN, FELDENE, BACLOFEN, AND HYDRALAZINE. CURRENT MEDICATIONS: Calcium, multivitamin, aspirin, estradiol, levothyroxine 0.5 mg, amlodipine, Boniva, folic acid 400 mcg, Cymbalta, Coreg 12.5, vitamin D, Protonix, and Myrbetriq. PAIN CLINIC ASSESSMENT/PQRS: 1. History of osteoarthritis. The patient has some arthritic changes in her left knee. She also have pain in her neck, hands, and her feet. Has noted some tingling in these areas. 2. Rheumatoid arthritis. The patient is not being treated for rheumatoid arthritis. 3. Height 4 feet 11 inches, weight 217 pounds, BMI is 44. 4. Vital signs: Blood pressure 140/58, heart rate 75, respiratory rate 16, room air saturation 91%, temperature 98.0. 5. Pain intensity 3-4/10. 6. Fall history. The patient has not fallen in the last 3 months. 7. Blood thinner. The patient is not on a blood thinning medication. 8. Hypertension. The patient is being treated for hypertension. 9. Opioid. The patient receives her medication from 1 source, the pain clinic. 10. Risk assessment tool, low for opioid use. 11. Functional assessment tool. 12. Recreational drug use. The patient [place] [address] PAIN MANAGEMENT CONSULTATION Name: ANNITA ODEN Room: [facility] Karolyn#: [id number] Admission: 03/13/18 Attend Phys: Sabine Villarreal MD Discharge: Date of : 39 Report #: [id number] 13. Tobacco: The patient quit smoking 30 years ago. 14. Alcohol: The patient denies use of alcoholic beverages. PHYSICAL EXAMINATION: GENERAL: The patient is a well-developed, well-nourished white female. She is accompanied by her son. She is alert and oriented x 3. Her affect is appropriate. Speech is fluent. HEENT: Normocephalic, atraumatic. Extraocular eye muscles intact. Sclerae nonicteric. Mucous membranes are moist. HEART: Regular rate. ABDOMEN: Protuberant. Bowel sounds present. Chest generally clear, somewhat distant, difficult to hear secondary to the patient's body habitus and her ability to comply. EXTREMITIES: Upper extremity, muscle strength 4/5 for the major muscle groups in the upper extremity. The patient go from a sitting to a standing position with her hands. Walks with a cane. Has a slow somewhat an antalgic gait, without significant scoliosis or lordosis. This patient has some kyphosis noted. IMPRESSION: 1. Chronic pain. 2. History of fibromyalgia. 3. Hypoxemia. History of low oxygen 90%. The patient is on oxygen at home. 4. Diabetes type 2. 5. Degenerative arthritis involving the right knee. 6. Neuropathic pain. 7. Lumbar radicular pain secondary to spinal stenosis. 8. Vertebral compression history. 9. History of Crohn's disease. RECOMMENDATIONS: We discussed treatment options with the patient. At this juncture, we will continue with her medications. A script for her medications has been written. She will continue with methadone 5 mg 1 p.o. b.i.d., 2-month supply has been given. The patient will call us if she has any concerns. The patient will also take the Percocet 5 mg 1 p.o. t.i.d. Script for these medications have been written. The patient will follow up with her pulmonary doctor as well as with her health education teacher. We would like to thank you for letting us participate in her care. We hope she continues to improve. By: 1128 Mark Anthony Villarreal MD /JENI
== END ==
LOC: M.PC 09:30
DX: M54.16 Radiculopathy, lumbar region (principal); M48.061 Spinal stenosis, lumbar region without neurogenic claudication; G89.29 Other chronic pain; M17.11 Unilateral primary osteoarthritis, right knee; E11.9 Type 2 diabetes mellitus without complications; M79.7 Fibromyalgia; G62.9 Polyneuropathy, unspecified; R09.02 Hypoxemia; Z79.899 Other long term (current) drug therapy; Z87.19 Personal history of other diseases of the digestive system

== ENCOUNTER → 2018-03-27 | Outpatient (CLI) | payer MEDICARE, BC ==
[2018-03-27] VITALS (9 sets, daily range): BP systolic 149–187; BP diastolic 53–65
--- NOTE | 2018-03-27 17:45 | TEE ---
[place] [address] TRANSESOPHAGEAL ECHOCARDIOGRAM Name: ANNITA ODEN Room: [facility]#: [id number] Admission: 03/27/18 Attend Phys: Neymar Joel, Discharge: Date of : 39 Date of Service: 03/27/18 1745 Report #: [id number] THIS REPORT FOR: //name// ADDENDUM APPROVED REPORT Study performed: 03/27/2018 09:10:08 EXAM: Transesophageal Echocardiogram Patient Location: Out-Patient Status: routine BSA: 1.91 HR: 61 bpm BP: 211/82 mmHg Rhythm: NSR Other Information Study Quality: Good Indications Rule out aortic valve disease Echo Enhancing Agent Indication: Rule out Shunt Agent(s) / Amount(s) Used: Agitated Saline 10 cc Procedure After obtaining informed consent, patient underwent transesophageal echo in the [employer]. Type of Sedation : Conscious Sedation Sedation was administered by Kathy Gerard RN. Sedation start time: 953 Case end Time: 1005 Sedation was achieved intravenously with: Versed (3) Transesophageal probe was inserted and advanced into esophagus without difficulty by Neymar Joel MD, FACC. Echo enhancement indication: R/O Septal defect. Echo enhancement agent administered: Agitated Saline The VINICIO was performed without complications. Throughout the procedure, the blood pressure, pulse oximetry, cardiac rhythm, and rate were monitored. The patient tolerated the procedure without adverse effects. Recovery from conscious sedation was uneventful and vital signs were stable. Left Ventricle The left ventricle is normal size. There is normal LV segmental wall [address] [address] TRANSESOPHAGEAL ECHOCARDIOGRAM Name: ANNITA ODEN Room: [facility]#: [id number] Admission: 03/27/18 Attend Phys: Neymar Joel, Discharge: Date of : 39 Date of Service: 03/27/18 1745 Report #: [id number] motion. Mild to moderate concentric left ventricular hypertrophy. Left ventricular systolic function is normal. The left ventricular ejection fraction is within the normal range. LVEF is 65-70%. Right Ventricle The right ventricle is normal size. The right ventricular systolic function is normal. Atria No thrombus is visualized in the left atrium or appendage. Interatrial septum is intact without evidence of ASD or PFO. The right atrium size is normal. Aortic Valve Mild aortic valve sclerosis. moderate aortic regurgitation. There is no aortic valvular stenosis. Mitral Valve Moderate mitral annular calcification. Mild mitral regurgitation. No evidence of mitral valve stenosis. Tricuspid Valve The tricuspid valve is normal in structure. There is no tricuspid valve regurgitation noted. Pulmonic Valve Pulmonic valve is not well visualized. There is no pulmonic valvular regurgitation. Great Vessels The aortic root is normal in size. Pericardium There is no pericardial effusion. <Conclusion> LVEF is 65-70%. There is normal LV segmental wall motion. No thrombus is visualized in the left atrium or appendage. There is no aortic valvular stenosis. moderate aortic regurgitation. Mild mitral regurgitation. <ELECTRONICALLY SIGNED> By: Neymar Joel MD, FACC 03/27/18 1745 [id number] [phone] Neymar Joel MD, FACC /INF
== END | disposition home or self-care (01) ==
LOC: M.CL 08:00
DX: I08.0 Rheumatic disorders of both mitral and aortic valves (principal); I10 Essential (primary) hypertension; D64.9 Anemia, unspecified; N19 Unspecified kidney failure; Z98.890 Other specified postprocedural states; Z88.0 Allergy status to penicillin; Z88.2 Allergy status to sulfonamides; Z88.8 Allergy status to other drugs, medicaments and biological substances; Z87.19 Personal history of other diseases of the digestive system; Z79.899 Other long term (current) drug therapy

== ENCOUNTER → 2018-04-23 | Outpatient (CLI) | payer MEDICARE, BC ==
[2018-04-23 15:23] LABS: ABSOLUTE BASOPHILS 0.1 thou/uL (0.0-0.2); ABSOLUTE EOSINOPHILS 0.6 thou/uL (0.0-0.7); ABSOLUTE LYMPHOCYTES 1.8 thou/uL (0.8-5.3); ABSOLUTE MONOCYTES 0.8 thou/uL (0.0-1.2); ABSOLUTE NEUTROPHILS 6.6 thou/uL (1.6-8.1); BASOPHILS 0.7 %; EOSINOPHILS 6.4 %; HEMATOCRIT 41.4 % (37.0-47.0); HEMOGLOBIN 13.8 gm/dL (12.0-15.0); LYMPHOCYTES 17.8 %; MCH 31.7 pg (26.0-34.0); MCHC 33.3 g/dL (28.0-37.0); MCV 95.2 fL (80.0-100.0); MONOCYTES 8.2 %; MPV 8.6 fl. (7.2-11.1); NUCLEATED RBCS 0 /100WBC; PLATELET COUNT* 209 thou/uL (150-400); POLYS 66.9 %; RBC 4.35 mil/uL (4.20-5.00); RDW-CV 12.8 % (10.5-14.5); WBC 9.8 thou/uL (4.0-11.0)
[2018-04-23 15:55] LABS: CALCIUM 9.6 mg/dL (8.5-10.1); CREATININE 1.1 mg/dL (0.6-1.3); POTASSIUM 4.7 mmol/L (3.5-5.1)
== END ==
LOC: M.LAB 15:04
PROVIDERS: Nurse Practitioner
DX: I50.32 Chronic diastolic (congestive) heart failure (principal)

== ENCOUNTER → 2018-05-08 | Outpatient (CLI) | payer MEDICARE, BC ==
[~2018-05-08] MED LIST changes: +OXYCODONE-APAP1 EAC4 PO
--- NOTE | ~2018-05-08 | CON ---
[address] [address] CONSULTATION Name: ANNITA ODEN [id number] Admission: 05/08/18 Attend Phys: Sabine Villarreal MD Discharge: Date of : 37 Report #: [id number] THIS REPORT FOR: //name// CC: Sabine Goodrich DO DATE OF SERVICE: 05/08/2018 CHIEF COMPLAINT: Here for medications. HISTORY OF PRESENT ILLNESS: The patient is an 83-year-old female, who has been followed in the pain clinic because of chronic pain. She is having pain and discomfort involving her hip. Left side is most problematic. She rates it as a 9/10 when she got up this morning. Feels like it is somewhat better. Has left knee pain as well. She feels that her medications are helpful. She is continuing to be followed by her primary physicians. She states that she has quite a number of physicians to meet with in a short period of time. She finds that this is quite taxing. She feels that her medications continue to be helpful. She is having no complication from their use. Notes that the weather pattern, which is changed and continues to fluctuate up to 30 degrees per day, have taxed her pain and caused worsening of pain. She feels that things are beginning to settle out. She is going to follow up with her pulmonary physician on 05/21/2018. She would like to continue with her methadone and oxycodone. She feels that these medications are helpful. Notes increased discomfort with walking, sitting, and standing. ALLERGIES: FENTANYL, INDOMETHACIN, LEVAQUIN, MORPHINE, RELAFEN, PENICILLIN, FELDENE, BACLOFEN, HYDRALAZINE. CURRENT MEDICATIONS: Calcium, multivitamin, aspirin, estradiol, levothyroxine 0.5 mg, amlodipine, Boniva, folic acid 400 mcg, Cymbalta, Coreg 12.5 mg, vitamin D, Protonix, myrbetriq, methadone 5 mg 1 p.o. b.i.d., oxycodone 5 mg p.o. t.i.d. PAIN CLINIC ASSESSMENT/PQRS: 1. The patient has osteoarthritic changes and has had a left knee replacement. Also, has some pain in her neck, hands and feet. Has noted increased pain and discomfort in the left hip with the change in weather. She has not been treated for rheumatoid arthritis. 2. Height 5 feet 4 inches, weight 208 pounds, BMI is 42. 3. Vital signs: Blood pressure 115/55, heart rate 82, respiratory rate 16, room air saturation 91%, temperature is 98.8. 4. Pain in the left hip is faded 10 low. This rated as 5. 5. Fall history: The patient has not fallen in the last 3 months. She does walk with use of a cane. 6. Blood thinner. The patient is not on a blood [place] [address] CONSULTATION Name: ANNITA ODEN Room: [facility] Karolyn#: [id number] Admission: 05/08/18 Attend Phys: Sabine Villarreal MD Discharge: Date of : 37 Report #: [id number] 7. Hypertension. The patient is being treated for hypertension. 8. Opioids. The patient receives her medication from 1 source, the pain clinic. 9. Functional assessment tool. 10. Recreational drug use. The patient denies use of recreational drugs. 11. Tobacco: The patient denies use of tobacco. 12. Alcohol: The patient denies use of alcoholic beverages. PHYSICAL EXAMINATION: GENERAL: The patient is a well-developed, well-nourished white female. She is accompanied by her son. She is alert and oriented x 3. Her affect is appropriate. Speech is fluent. HEENT: Normocephalic, atraumatic. Extraocular eye muscles intact. The patient has glasses on. HEART: Grade 2 systolic ejection murmur with murmur heard in the left and right carotid. ABDOMEN: Protuberant. Bowel sounds present. EXTREMITIES: Upper extremity muscle strength judged to be 4/5 for the major muscle groups in the upper extremity. The patient has pain and discomfort in her low back area. Rates it as a 9/10. Has pain in the left hip, rates it as a 10/10. Has some kyphosis. Walks with a slow antalgic gait. IMPRESSION: 1. Chronic pain. 2. History of fibromyalgia. 3. Hypoxia. History of low oxygen content 90%. The patient is on oxygen at home. 4. Diabetes type 2. 5. Degenerative arthritis involving the right knee. 6. Chronic neuropathic pain. 7. Lumbar radicular pain secondary to spinal stenosis. 8. Vertebral compression history. 9. History of Crohn's disease. RECOMMENDATIONS: We discussed treatment options with the patient and her son. The patient feels that she is doing reasonably well. She would like to have her medications continued. She would like to be on a 3-month schedule. States that this is somewhat difficult for her because of the number of physician visits that she is undergoing. We will consider making her return to the pain clinic on 3 months basis. We would like to thank you for letting us participate in her care. We hope she continues to improve. By: [id number]. Alex Villarreal MD /JENI
== END ==
LOC: M.PC 05:03
DX: G89.29 Other chronic pain (principal); M17.11 Unilateral primary osteoarthritis, right knee; M54.16 Radiculopathy, lumbar region; M48.062 Spinal stenosis, lumbar region with neurogenic claudication; E11.9 Type 2 diabetes mellitus without complications; I10 Essential (primary) hypertension; R09.02 Hypoxemia; Z88.8 Allergy status to other drugs, medicaments and biological substances; Z88.0 Allergy status to penicillin; Z79.899 Other long term (current) drug therapy; Z79.891 Long term (current) use of opiate analgesic; Z87.19 Personal history of other diseases of the digestive system

== ENCOUNTER 2018-06-10 10:41 | Observation (INO) | payer MEDICARE, BC ==
[2018-06-10] VITALS (14 sets, daily range): BP systolic 124–174; BP diastolic 55–75
[~2018-06-10] VITALS: Ht 149.9 cm; Wt 94.8 kg
--- NOTE | ~2018-06-10 | H ---
[address] [address] HISTORY AND PHYSICAL Name: ANNITA ODEN Room: [address] Mariella MGrantRGrant#: [id number] Admission: 06/10/18 Attend Phys: Neymar Joel MD Discharge: 06/11/18 Date of : 37 Report #: [id number] THIS REPORT FOR: //name// Please refer to the History and Physical performed in the physician's office. By: [id number] Records Staff RAJWINDER /SANDI
[~2018-06-10 10:41] MED LIST changes: -CARVEDILOL12.5 MG
[2018-06-10 12:07] LABS: HEMATOCRIT 37.3 % (37.0-47.0); HEMOGLOBIN 12.4 gm/dL (12.0-15.0); MCH 31.1 pg (26.0-34.0); MCHC 33.3 g/dL (28.0-37.0); MCV 93.3 fL (80.0-100.0); MPV 9.2 fl. (7.2-11.1); RDW-CV 12.7 % (10.5-14.5); WBC 10.8 thou/uL (4.0-11.0)
[2018-06-10 12:15] LABS: APTT 29.2 Seconds (25.0-31.3); PROTIME 10.3 Seconds (9.20-11.50)
[2018-06-10 12:23] LABS: ALBUMIN 3.1 g/dL (3.4-5.0); ALKALINE PHOSPHATASE 63 U/L (46-116); ANION GAP 6 mmol/L (7-16); BUN 20 mg/dL (7-18); CALCIUM 9.5 mg/dL (8.5-10.1); CHLORIDE 102 mmol/L (98-107); CHOLESTEROL 179 mg/dL (<200); CO2 35 mmol/L (21-32); CREATININE 1.1 mg/dL (0.6-1.3); GLUCOSE 154 mg/dL (70-99); HDL CHOLESTEROL 52 mg/dL (>40); LDL CHOLESTEROL 109 mg/dL (<100); POTASSIUM 4.2 mmol/L (3.5-5.1); SERUM ASSESSMENT Clear; SGOT 19 U/L (15-37); SGPT 26 U/L (30-65); SODIUM 143 mmol/L (136-145); TC:HDL 3.4 Ratio (Not establshd); TOTAL BILIRUBIN 0.8 mg/dL (<0.1-1.0); TOTAL PROTEIN 6.6 g/dL (6.4-8.2); TRIGLYCERIDE 93 mg/dL (<150); VLDL 19 mg/dL (<40)
--- NOTE | 2018-06-10 15:06 | EKG ---
[place] [address] ELECTROCARDIOGRAM REPORT Name: ANNITA ODEN Room: [facility]#: [id number] Admission: 06/10/18 Attend Phys: Neymar Joel MD Discharge: Date of : 37 Report #: [id number] THIS REPORT FOR: //name// [facility] Test Date: 2018-06-10 Test Time: 11:31:05 Pat Name: ANNITA ODEN Department: Room: Gender: F Marketing Lead: KURTIS : 1935 Requested By: Neymar Joel Order Number: [id number] Reading MD: Neymar Joel Measurements Intervals [place] Rate: 61 P: -4 MA: 179 QRS: 0 QRSD: 90 T: 69 QT: 425 QTc: 428 Interpretive Statements Sinus rhythm Probable anteroseptal infarct, recent Compared to ECG 06/21/2017 21:15:14 No significant changes Electronically Signed On 06-10-2018 15:06:11 CDT by Neymar Joel [email or web address] <ELECTRONICALLY SIGNED> By: Neymar Joel MD, [facility] 06/10/18 1506 1131 1131 Neymar Joel MD, [facility] /EPI
[2018-06-10] MEDS ORDERED: LASIX 20 MG TAB20 MG PO (16:46)
[2018-06-10] MEDS ORDERED: KLOR-CON 1010 MEQ PO (16:47)
--- NOTE | 2018-06-10 18:08 | NUR ---
PT ADMITTED TO ROOM 222 VIA BED FROM CUTTING INSPECTOR AT APPROXIMATELY 1600 POST CARDIAC CATH. ACCESS INTO RIGHT WRIST. VASC BAND IN PLACE. POST CARDIAC CATH ASSESSMENT AND VITALS CHARTED. NO HEMATOMA NOTED. ADMISSION ASSESSMENT AND HISTORY COMPLETED. REFER TO CHARTING. MEDICARE AND FALL AGREEMENT SIGNED AND PLACED IN FRONT OF CHART. HOME MEDICATIONS RECONCILED. PT A&0X4, COMPLAINS OF CHRONIC PAIN TO BACK AND NECK. PT RECEIVED DILAUDID IN PACU WITH PARTIAL RELIEF. PT RESIDES AT THE [facility]. PT ON 2L NC SAT 95%. DENIES ANY SHORTNESS OF BREATH. PT UP SBA TO BATHROOM WITH CANE. ILEOSTOMY TO DEPENDENT DRAINAGE. PT SON AT BEDSIDE AND UPDATED ON CURRENT PLAN OF CARE. PROBABLE DISCHARGE HOME TOMORROW 06/11. IVF. MEDICATIONS PER MAY. PT REPOSITIONS SELF WITH REMINDERS. HOURLY ROUNDING OBSERVED. BED IN LOW POSITION. CALL LIGHT WITHIN REACH. WILL CONTINUE PLAN OF CARE.
[2018-06-11] VITALS: BP 147/65
[2018-06-11 04:00] VITALS: BP 121/51
[2018-06-11 05:27] LABS: HEMATOCRIT 36.6 % (37.0-47.0); MCH 30.4 pg (26.0-34.0); MCHC 32.8 g/dL (28.0-37.0); MCV 92.7 fL (80.0-100.0); MPV 8.9 fl. (7.2-11.1); RBC 3.95 mil/uL (4.20-5.00); RDW-CV 12.2 % (10.5-14.5)
[2018-06-11 05:56] LABS: ALBUMIN 2.8 g/dL (3.4-5.0); CALCIUM 9.2 mg/dL (8.5-10.1); CREATININE 0.8 mg/dL (0.6-1.3); POTASSIUM 3.8 mmol/L (3.5-5.1); TOTAL PROTEIN 6.2 g/dL (6.4-8.2); TROPONIN-I LEVEL 0.09 ng/mL (<0.06)
--- NOTE | 2018-06-11 06:42 | NUR ---
RECEIVED REPORT AND ASSUMED CARE AT 1900. VSS. CARDIAC MONITORING IN PLACE. PT REPORTS PAIN,PAIN MEDICATION ADMIN PER ORDERS. ASESSMENT COMPLETED CHARTED. PT UP WITH ASSISSTANCE WITH CANE, ON 2L NC. BED LOCKED IN LOWEST POSITION, CALL LIGHT WITHIN REACH, BED ALARM ON. HOURLY ROUNDING COMPLETED AND ALL NEEDS MET.
[2018-06-11 08:05] VITALS: BP 153/63
[2018-06-11 09:57] VITALS: BP 153/63
[2018-06-11] MEDS ORDERED: NITROGLYCERIN0.4 MG SUBLING (10:31)
[2018-06-11] MEDS ORDERED: BRILINTA90 MG PO (10:31)
--- NOTE | 2018-06-11 11:28 | NUR ---
RECEIVED REPORT FROM NATASHA HERRERA. ASSUMED CARE PT PT AROUND 0730. PT A&O X4. VSS. SUPERVISOR CABINETMAKER IN PLACE TRACING SR. AM ASSESSMENT AND VITALS COMPLETED CHARTED. RIGHT RADIAL CATH SITE CDI, SLIGHT BRUISING NOTED. DISCHARGE ORDERS RECIEVED. DISCHARGE COMPLETED DOCUMENTED. DISCHARGE SUMMARY, CARE NOTES, AND SCRIPTS GONE OVER WITH PT. PT COMMUNICATES UNDERSTANDING. ALL BELONGINGS GATHERED AND LEAVING WITH THE PT. IV AND SUPERVISOR CABINETMAKER REMOVED. PT WAITING IN ROOM FOR RIDE. CALL LIGHT IS WITHIN REACH. WCTM UNTIL PT READY TO DC.
[2018-06-11 12:21] VITALS: BP 154/68
--- NOTE | 2018-06-11 15:55 | EKG ---
[place] [address] ELECTROCARDIOGRAM REPORT Name: ANNITA ODEN Room: [address]#: [id number] Admission: 06/10/18 Attend Phys: Neymar Joel MD Discharge: 06/11/18 Date of : 37 Report #: [id number] THIS REPORT FOR: //name// [facility] Test Date: 2018-06-10 Test Time: 16:49:12 Pat Name: ANNITA ODEN Department: Room: [facility] Gender: F Steamer Tender: CCD : 1935 Requested By: Jonny Ramirez Order Number: [id number] Keyla MD: Jonny Ramirez Measurements Intervals [place] Rate: 64 P: -26 SC: 188 QRS: 10 QRSD: 87 T: 77 QT: 410 QTc: 423 Interpretive Statements Sinus rhythm Anteroseptal infarct, old possible Compared to ECG 06/10/2018 11:31:05 No significant changes Electronically Signed On 06-11-2018 15:55:43 CDT by Jonny Ramirez [email or web address] <ELECTRONICALLY SIGNED> By: Jonny Ramirez MD, [facility] 06/11/18 1557 1649 1649 Jonny Ramirez MD, [facility] /EPI
--- NOTE | 2018-06-11 15:58 | EKG ---
[place] [address] ELECTROCARDIOGRAM REPORT Name: ANNITA ODEN Room: [address]#: [id number] Admission: 06/10/18 Attend Phys: Neymar Joel MD Discharge: 06/11/18 Date of : 37 Report #: [id number] THIS REPORT FOR: //name// [facility] Test Date: 2018-06-11 Test Time: 04:39:51 Pat Name: ANNITA ODEN Department: Room: [facility] Gender: F Billing Rep: RB : 1935 Requested By: Jonny Ramirez Order Number: [id number] Reading MD: Jonny Ramirez Measurements Intervals [place] Rate: 65 P: -5 [place]: 184 QRS: 13 QRSD: 88 T: 81 QT: 413 QTc: 430 Interpretive Statements Sinus rhythm Anteroseptal infarct, old Baseline wander in lead(s) V3,V6 Compared to ECG 06/10/2018 11:31:05 No significant changes Electronically Signed On 06-11-2018 15:58:35 CDT by Jonny Ramirez [email or web address] <ELECTRONICALLY SIGNED> By: Jonny Ramirez MD, FACC 06/11/18 1558 0439 0439 Jonny Ramirez MD, [facility] /EPI
--- NOTE | 2018-06-11 16:09 | D ---
[address] [address] DISCHARGE SUMMARY Name: ANNITA ODEN Room: [address] Mariella Parr#: [id number] Admission: 06/10/18 Attend Phys: Neymar Joel MD Discharge: 06/11/18 Date of : 37 Report #: [id number] THIS REPORT FOR: //name// CC: Neymar Goodrich DATE OF SERVICE: 06/11/2018 FINAL DISCHARGE DIAGNOSES: 1. Coronary artery disease. 2. Status post percutaneous coronary intervention of the right coronary artery. 3. Hypertension. 4. Hyperlipidemia. 5. Diabetes mellitus. 6. Moderate aortic insufficiency. PROCEDURES: 06/10/2018 - left heart catheterization, selective coronary arteriography, and percutaneous coronary intervention to the right coronary artery. HOSPITAL COURSE: The patient is a very pleasant 83-year-old female with coronary artery disease and recently abnormal nuclear stress test with inducible inferior ischemia. She has underlying hypertension, hyperlipidemia and diabetes. She underwent cardiac catheterization on 06/10/2018, which revealed 60% mid LAD narrowing and 90% mid right coronary stenosis with 75% proximal right coronary narrowing, the right being a dominant vessel. I performed percutaneous coronary intervention, deploying two drug-eluting stents in the right coronary artery, a 3.25 x 15 mm Xience proximally, a 3.0 x 12 Xience in the midportion with 10% and 0% residual narrowings and ZAYRA 3 flow of the distal vessel. The patient did well post-procedurally with good hemostasis at the right radial site of catheterization. Laboratory on 06/11/2018 revealed a sodium 143, potassium 3.8, BUN 12, creatinine 0.8, hemoglobin 12.0, white blood cell count 9000 and 194,000 platelets. Cholesterol 179, HDL 52, LDL 109. DISCHARGE MEDICATIONS: The patient was discharged home in stable condition on the following medications: Amlodipine 5 mg daily, aspirin 81 mg daily, carvedilol 25 mg b.i.d., Cymbalta 30 mg at bedtime, furosemide 10 mg daily, Boniva 150 mg daily, L-thyroxine 50 mcg daily, methadone 5 mg b.i.d., multivitamin tablet 1 tablet daily, oxycodone 1 tablet t.i.d. p.r.n., pantoprazole 40 mg daily, potassium chloride 5 mEq daily, ticagrelor or Brilinta 90 mg b.i.d. She also takes sumatriptan 100 mg daily on a p.r.[place] [address] DISCHARGE SUMMARY Name: ANNITA ODEN Room: [address] MGrantRGrant#: [id number] Admission: 06/10/18 Attend Phys: Neymar Joel MD Discharge: 06/11/18 Date of : 37 Report #: [id number] The patient is scheduled to follow up with Maggie Carias, our nurse practitioner on 06/25/2018 at 11:00. Thus, the patient is discharged to home in stable condition on the aforementioned medications with followup as iterated above. <ELECTRONICALLY SIGNED> By: Jonny Ramirez MD, FACC 06/11/18 1609 0916 1535Jopoli Ramirez MD, FAC /nt
--- NOTE | 2018-06-13 15:59 | CARD ---
[address] [address] CARDIAC CATH REPORT Name: ANNITA ODEN Room: [address] Mariella Parr#: [id number] Admission: 06/10/18 Attend Phys: Neymar Joel MD Discharge: 06/11/18 Date of : 37 Report #: [id number] THIS REPORT FOR: //name// ADDENDUM APPROVED REPORT Study performed: 06/10/2018 13:50:30 Patient Details Patient Status: Out-Patient Room #: The patient is a 83 year-old female Event Personnel Yarelis Hartman RN RN, , Shayy Pina Monitor, Roberto Valdivia (Wisam Bon[employer] Department Supervisor, Jonny Ramirez Credit Collections Analyst Procedures Performed YENIFER Place w/wo Plasty Single RCA; left heart catheterization left ventriculography and selective coronary angiography;and aortography Indication Positive stress test Risk Factors Obesity, Hypercholesterolemia, Hypertension Admission/Lab Medications/Medications given during procedure Aspirin, Platelet Aff. Inhib., Angiomax bolus and infusion Procedure Narrative The patient was brought electively to the Cardiac Catheterization Laboratory and was prepped and draped in a sterile manner. The right wrist was infiltrated with 2% Lidocaine subcutaneous anesthesia. A Slender Glidesheath sheath was inserted into the right radial artery. Coronary angiography was performed using coronary diagnostic catheters. The right coronary system was accessed and visualized with a Diagnostic DCR: [place] 4.0 5fr catheter. The left coronary system was accessed and visualized with a Diagnostic DCR: [place] 4.0 5fr catheter. The left ventricle was accessed and visualized with a Diagnostic PC: Angled Pig 5fr catheter. Left ventricular/Aortic Valve gradient assessed via catheter pullback. Left ventriculogram was performed in LEACH projection. Closure device was deployed with a Fr Vasc-Band Reg 24cm. The patient tolerated the procedure well and there were no complications associated with [place] [address] CARDIAC CATH REPORT Name: ANNITA ODEN Room: [address]#: [id number] Admission: 06/10/18 Attend Phys: Neymar Joel MD Discharge: 06/11/18 Date of : 37 Report #: [id number] no hematoma. Intraoperative Conscious Sedation Sedation start time: 14:24 Case end Time: 15:32 Versed 2 mg 0.5 mg Dilaudid Fluoro Time: 18.4 minutes Dose: DAP [id number] cGycm2 3154 mGy Contrast Type and Amount: Visipaque 350 ml Coronary Angiography The patient's coronary anatomy is right dominant. Diagnostic Cath Left Main 0% narrowing LAD 60% tubular mid LAD narrowing Circumflex 0 Percent narrowing Right Coronary Large dominant vessel with 70% proximal and 90% mid vessel stenosis Left Ventriculography The left ventricle is normal in size with normal contractility. The left ventricular ejection fraction is estimated to be 65-70%. Left ventricular wall motion abnormalities are not present. There is no mitral insufficiency. Ascending aortography defined a non-dilated aortic root with mild aortic insufficiency Hemodynamics The aortic pressure is 151/47 mmHg with a mean of 58 mmHg. The left ventricular pressure is 145/5 mmHg with a mean of mmHg. The left ventricular end diastolic pressure is 19 mmHg. There was no gradient across the aortic valve upon pullback. PCI Technique Lesion Anticoagulation was achieved with Angiomax. Patient was preloaded with Angiomax IV 14 mg per kg. Percutaneous coronary intervention was performed on the mid right coronary artery. The lesion stenosis prior to intervention was 90% with ZAYRA flow. A 6Fr AR 1 Guide Catheter was used to engage the ostium. A IG: BMW 190cm Interventional Guidewire was used to cross the lesion. BALLOON DILATION A Balloon catheter Trek RX 2.75 X 12 was inserted and inflated up to 14.00atm for 18seconds. Additional Inflation: 18.00[place]m [place] [address] CARDIAC CATH REPORT Name: ANNITA ODEN Room: [address] aMriella M.RGrant#: [id number] Admission: 06/10/18 Attend Phys: Neymar Joel MD Discharge: 06/11/18 Date of : 37 Report #: [id number] 14seconds. STENT DEPLOYMENT A drug-eluting stent Xience Rekha 3.0X12mm was inserted and inflated up to 14.00atm for 17seconds. Additional Inflation: 17.00atm for 13seconds. Final angiography reveals 0 % stenosis with ZAYRA 3 flow. PCI Technique Lesion 2 Percutaneous Coronary Intervention was performed on the proximal right coronary artery. Patient was preloaded with Angiomax IV 14 mg per kg. Percutaneous coronary intervention was performed on the proximal right coronary artery. The lesion stenosis prior to intervention was 70% with ZAYRA flow. A 6Fr AR 1 Guide Catheter was used to engage the ostium. A IG: BMW 190cm Interventional Guidewire was used to cross the lesion. Balloon Dilation A Balloon catheter Trek RX 2.75 X 12 was inserted and inflated up to 18.00atm for 17seconds. Stent Deployment A drug-eluting stent Xience Rekha 3.02K22un was inserted and inflated up to 14.00atm for 15seconds. Additional Inflation: 18.00atm for 14seconds. Post Stent Deployment Balloon Dilation A Balloon catheter NC Trek RX 3.5 X 8 was inserted and inflated up to 17.00atm for 14seconds. Additional Inflation: 20.00atm for 12seconds. Final angiography reveals 10 % stenosis with ZAYRA 3 flow. Conclusion #1 significant coronary artery disease characterized by the following: A 60% tubular mid LAD stenosis B large dominant right coronary with 70% proximal narrowing and 90% focal mid vessel stenosis #2 hyperdynamic left ventricular systolic function, ejection fraction being 65-70% [place] [address] CARDIAC CATH REPORT Name: ANNITA ODEN Room: [address] Mariella Parr#: [id number] Admission: 06/10/18 Attend Phys: Neymar Joel MD Discharge: 06/11/18 Date of : 37 Report #: [id number] #3 mild elevation of left ventricular end-diastolic pressure at rest #4 successful percutaneous coronary intervention with deployment of sequential drug-eluting stents at the sites of 70% proximal and 90% mid right coronary stenoses with 10 and 0% residual narrowing following stent deployment with ZAYRA-3 flow to the distal vessel #5 mild aortic insufficiency Recommendations Cardiac Risk Reduction Program Aggressive Medical Therapy Medications Administered Aspirin (any) Ticagrelor Diagnostic Cath Approved by: Neymar Joel MD Date/Time: 06/13/2018 15:31:45 <ELECTRONICALLY SIGNED> By: Jonny Ramirez MD, FACC 06/13/18 1559 1559 1559Jonny Ramirez MD, FACC /INF
== END 2018-06-11 12:05 | disposition home or self-care (01) ==
LOC: M.CL 10:41 → M.TBA-CV 15:32 → M.2W 15:32
PROVIDERS: Internal Medicine; ADMIT Internal Medicine Cardiovascular Disease
DX: I25.10 Atherosclerotic heart disease of native coronary artery without angina pectoris (principal); I10 Essential (primary) hypertension; E78.5 Hyperlipidemia, unspecified; E11.9 Type 2 diabetes mellitus without complications; I35.1 Nonrheumatic aortic (valve) insufficiency; E66.9 Obesity, unspecified; E78.00 Pure hypercholesterolemia, unspecified; Z98.61 Coronary angioplasty status

== ENCOUNTER → 2018-07-03 | Outpatient (CLI) | payer MEDICARE, BC ==
[~2018-07-03] MED LIST changes: +ATORVASTATIN CA40 MG PO; +BRILINTA90 MG PO; +LASIX 20 MG TAB20 MG PO; +NITROGLYCERIN0.4 MG SUBLING; +OXYCODONE-ACET1 EACH PO; +OXYGEN MISCELL; +SYMBICORT160 MCG/4. INH
--- NOTE | ~2018-07-03 | PAINCON ---
[address] [address] PAIN MANAGEMENT CONSULTATION Name: ANNITA ODEN [id number] Admission: 07/03/18 Attend Phys: Sabine Villarreal MD Discharge: Date of : 37 Report #: [id number] THIS REPORT FOR: //name// CC: Sabine Goodrich DO DATE OF SERVICE: 07/03/2018 CHIEF COMPLAINT: Low back pain and pain all over. FOLLOWUP HISTORY: The patient is an 83-year-old female who has been followed in the pain clinic because of chronic pain. She feels that her medications are helpful. She has returned today for renewal of her medications. She has had 2 stents placed in her heart since we saw her last. Her tawxladt-ys-opp says that she is doing better as a result of that. Continues to have some pain and discomfort in her low back as well as into the hip area. She is on chronic oxygen therapy at home at this juncture. She is unable to carry this oxygen around away from home because of the bulk of the item. The patient has returned today with a desire to have her medications renewed. Notes that her pain is worse with walking, sitting, and standing. Feels that the methadone and oxycodone are helpful. States she is taking them as prescribed. They enable her to engage in activities, she would not be able to without their use. ALLERGIES: FENTANYL, INDOMETHACIN, LEVAQUIN, MORPHINE, RELAFEN, PENICILLIN, FELDENE, BACLOFEN, AND HYDRALAZINE. CURRENT MEDICATIONS: Calcium, multivitamin, aspirin, estradiol, levothyroxine 0.5 mg, amlodipine, Boniva, folic acid 400 mcg, Cymbalta, Coreg 12.5 mg, vitamin D, Protonix, myrbetriq, methadone 5 mg 1 p.o. b.i.d., oxycodone 5 p.o. t.i.d. PAIN CLINIC ASSESSMENT/PQRS: 1. The patient has osteoarthritic changes involving her left knee. Has had a knee replacement. Has pain in her neck, hands, feet, and notes some generalized discomfort. She is not being treated for rheumatoid arthritis. 2. Height 5 feet 4 inches, weight 204 pounds, BMI is 41. 3. Vital signs: Blood pressure 116/56, heart rate 74, respiratory rate 16, room air saturation 91%. 4. Pain intensity 8/10. 5. Fall history: The patient has not fallen in the last 3 months. Pain is in the low back area as well as the hip. 6. Blood thinner. The patient is not on a blood thinning medication. 7. Hypertension. The patient is being treated for hypertension. 8. Opioids. The patient receives her medications from 1 source the pain clinic. 9. Risk assessment tool, [place] [address] PAIN MANAGEMENT CONSULTATION Name: ANNITA ODEN [id number] Admission: 07/03/18 Attend Phys: Sabine Villarreal MD Discharge: Date of : 37 Report #: [id number] 10. Functional assessment tool. 11. The patient denies use of recreational drugs. 12. Tobacco: The patient stopped smoking in . 13. Alcohol: The patient denies use of alcoholic beverages. PHYSICAL EXAMINATION: GENERAL: The patient is a well-developed, well-nourished white female. She is somewhat obese. Her qbasyuxy-oo-bue is present. Her affect is appropriate. Speech is fluent. HEENT: Normocephalic, atraumatic. Extraocular eye muscles intact. The patient is wearing glasses. HEART: History of grade 2 systolic ejection murmur heard at left and right carotid area. ABDOMEN: Protuberant. Bowel sounds present. EXTREMITIES: Upper extremities, muscle strength is judged to be 4/5 for the major muscle groups in the upper extremity. Lower extremity, the patient's muscle strength 4/5 in lower extremity. Has pain in her left hip. Has noted kyphosis. Slow antalgic gait, uses hands go from a sitting to a standing position before walking. IMPRESSION: 1. Chronic pain. 2. History of fibromyalgia. 3. Hypoxia, oxygen about 91%. The patient now on chronic oxygen at home. 4. Diabetes type 2. 5. Degenerative arthritis involving the right knee. 6. Chronic neuropathic pain. 7. Lumbar radicular pain secondary to spinal stenosis. 8. Vertebral compression history. 9. History of Crohn's disease. RECOMMENDATIONS: We discussed treatment options with the patient and her fewqicmh-ej-vku. At this juncture, we will continue with her medications. A script for medication for the next 2 months for methadone and oxycodone have been given. The patient states that she uses oxygen at home. She will return as needed. We will see her in the next 2 months. We would like to thank you for letting us participate in her care. We hope she continues to improve. By: [id number]. Alex Villarreal MD /PMT
== END ==
LOC: M.PC 04:22
DX: G89.29 Other chronic pain (principal); I10 Essential (primary) hypertension; E11.9 Type 2 diabetes mellitus without complications; M17.11 Unilateral primary osteoarthritis, right knee; Z88.8 Allergy status to other drugs, medicaments and biological substances; Z88.5 Allergy status to narcotic agent; Z88.0 Allergy status to penicillin; Z79.899 Other long term (current) drug therapy; Z96.652 Presence of left artificial knee joint; Z79.891 Long term (current) use of opiate analgesic; Z87.891 Personal history of nicotine dependence

== ENCOUNTER → 2018-09-04 | Outpatient (CLI) | payer MEDICARE, BC ==
--- NOTE | ~2018-09-04 | PAINCON ---
[address] [address] PAIN MANAGEMENT CONSULTATION Name: ANNITA ODEN Room: [facility]#: [id number] Admission: 09/04/18 Attend Phys: Sabine Villarreal MD Discharge: Date of : 37 Report #: [id number] THIS REPORT FOR: //name// CC: Sabine Goodrich DATE OF SERVICE: 09/04/2018 CHIEF COMPLAINT: Back pain and left knee pain. HISTORY: The patient is an 83-year-old female who has been followed in the pain clinic. She has returned today for renewal of her medications. Rates her pain as a 5/10 in intensity. Notes that her pain can be problematic in the morning. Pain some feet improves as the day progressed. Has pain in her lower back. Also, has pain in the upper back in the neck area. She has returned today for a renewal of her medications. Still has taken an anticoagulant medication because of her recent stent placements. Has noted some easy bruising on her arms. She is using oxygen on a regular basis. She is using 2 liters during the daytime. She uses 3 liters at night. Activities such as walking, standing can be somewhat problematic. The patient is not sure that her breathing, which has been problematic and improves significantly after stent placement. Still has difficulty with ambulating and states that she "can hardly walk in the morning. ALLERGIES: FENTANYL, INDOMETHACIN, LEVAQUIN, MORPHINE, RELAFEN, PENICILLIN, FELDENE, BACLOFEN, HYDRALAZINE. MEDICATIONS: Calcium, multivitamins, aspirin, estradiol, levothyroxine 0.5 mg, amlodipine 5 mg, Lipitor 40 mg, Symbicort 160/4.5, Coreg 12.5 mg, Lasix 20 mg, Boniva 150 mg, Synthroid 0.05%, methadone 5 mg b.i.d., multiple vitamins, nitroglycerin p.r.n., oxycodone 5/325 one p.o. t.i.d., oxygen 2 liters during the day, 3 liters at bedtime, Protonix 40 mg, potassium 10 mEq, sumatriptan 100 mg, Brilinta 90 mg b.i.d., blood thinner. PAIN CLINIC ASSESSMENT/PQRS: 1. The patient has arthritic changes involving her left knee. She has had a knee replacement in 2013. Complains of neck, hands, feet, and generalized discomfort. The patient is not being treated for rheumatoid arthritis. 2. Height 5 feet 4 inches, weight 208 pounds, BMI is 42. 3. Vital Signs: Blood pressure 141/80, heart rate 70, respiratory rate 18, room air saturation 95%, temperature is 98.2. 4. Pain intensity 5/10 5. Fall history: The patient has not fallen in the last 3 months. 6. Blood thinner. The patient is on a blood thinner medication since placement of stents. 7. Hypertension. The patient is being treated for hypertension. 8. Opioids greater and opioids. [place] [address] PAIN MANAGEMENT CONSULTATION Name: ANNITA ODEN Room: [facility]#: [id number] Admission: 09/04/18 Attend Phys: Sabine Villarreal MD Discharge: Date of : 37 Report #: [id number] source, the pain clinic. 9. Functional assessment tool. 10. Recreational drug use. The patient denies. 11. Tobacco: The patient stopped smoking 1980s. 12. Alcohol: The patient denies use of alcoholic beverages. PHYSICAL EXAMINATION: GENERAL: The patient is well-developed, well-nourished white female. She is somewhat obese. She is accompanied by her sister. Her affect is appropriate. Speech is fluent. HEENT: Normocephalic, atraumatic. Extraocular eye muscles intact. Sclerae nonicteric. The patient is wearing glasses. The patient has a history of grade 2 systolic ejection murmur on the left and right carotid area. ABDOMEN: Protuberant. Bowel sounds present. EXTREMITIES: The patient's upper extremities muscle strength is judged to be 4/5 for the major muscle groups in the upper extremity. Muscle strength to the lower extremity, 4/5 for the lower extremities. The patient complains of some hip pain. The patient has some kyphosis. Has an antalgic gait. Use her hands go from a sitting to a standing position. She is wearing 2 liters of oxygen via nasal cannula. IMPRESSION: 1. Chronic pain. 2. Cardiac history status post two stent or stent placements. 3. History of fibromyalgia. 4. Hypoxia, 2 liters of oxygen at home. 5. Diabetes type 2. 6. Degenerative osteoarthritis involving the right knee. 7. Chronic neuropathic pain. 8. Lumbar radicular pain secondary to spinal stenosis. 9. Vertebral compression history. 10. History of Crohn's disease. RECOMMENDATIONS: We discussed treatment options with the patient. At this juncture, she will continue with her medications. She feels that the methadone medication is beneficial. She is taking it as prescribed. She is not having any problems with the medications or with mentation. Also, feels that the oxycodone medications are beneficial. Her most problematic time of the day in the morning when she is getting up and starts ambulate. Feels that her medications are helpful. Continues to use oxygen at night at 3 liters. We had a discussion of the pathophysiology of oxygen and COPD as well as benefits of using oxygen in regards to her lung function and cardiac function. She will continue with her medications. A script for methadone 5 mg 1 p.o. b.i.d. has been written. The patient will also continue with oxycodone 5 mg 1 p.o. t.i.d. and Cymbalta 20 mg at bedtime. Scripts for these medications have been rewritten. The patient will [place] [address] PAIN MANAGEMENT CONSULTATION Name: AKSHATANNITA Rupesh Room: [facility]#: [id number] Admission: 09/04/18 Attend Phys: Sabine Villarreal MD Discharge: Date of : 37 Report #: [id number] We would like to thank you for letting us participate in her care. We hope she continues to improve. By: [id number]. Alex Villarreal MD /nt
== END ==
LOC: M.PC 05:00
DX: M17.12 Unilateral primary osteoarthritis, left knee (principal); M48.061 Spinal stenosis, lumbar region without neurogenic claudication; M54.16 Radiculopathy, lumbar region; G89.29 Other chronic pain; I10 Essential (primary) hypertension; R09.02 Hypoxemia; Z88.1 Allergy status to other antibiotic agents; Z88.0 Allergy status to penicillin; Z88.5 Allergy status to narcotic agent; Z88.8 Allergy status to other drugs, medicaments and biological substances; Z79.899 Other long term (current) drug therapy; Z79.01 Long term (current) use of anticoagulants; Z79.891 Long term (current) use of opiate analgesic; Z95.818 Presence of other cardiac implants and grafts; Z99.81 Dependence on supplemental oxygen

== ENCOUNTER → 2018-10-30 | Outpatient (CLI) | payer MEDICARE, BC | LOC: M.PC 02:12 | DX: M54.5 Low back pain (principal) ==

== ENCOUNTER → 2018-12-25 | Outpatient (CLI) | payer MEDICARE, BC ==
[~2018-12-25] MED LIST changes: -ATORVASTATIN CA40 MG PO; +LIPITOR40 MG PO; +PLAVIX 75 MG TA75 MG PO
--- NOTE | 2018-12-31 09:09 | PAINCON ---
[address] [address] PAIN MANAGEMENT CONSULTATION Name: ANNITA ODEN Room: [facility]#: [id number] Admission: 12/25/18 Attend Phys: Sabine Villarreal MD Discharge: Date of : 37 Report #: [id number] THIS REPORT FOR: //name// CC: Sabine Goodrich DO DATE OF SERVICE: 12/25/2018 CHIEF COMPLAINT: Low back pain and right hip pain. HISTORY: The patient is an 83-year-old female who has been followed in the pain clinic. As you recall, she suffers from chronic pain. She has pain involving her back as well as her legs. She also is on oxygen 3 liters. Finds her left hip is more bothersome today. She has been using a walker to ambulate in her house. She uses it all the time at this point. It feels overall that she is becoming a bit weaker. Walking with a walker and poses more problems involving her upper arms and shoulder joints. Overall, she feels that the medications are helpful. She feels that the medications, methadone, oxycodone and Cymbalta are beneficial. They are not causing any real problems with her sensorium. She is able to think clearly. She was taking an antiplatelet medication, which seemed to have been causing a significant amount of bruising. She has been changed from Brilinta to Plavix. ALLERGIES: FENTANYL, INDOMETHACIN, LEVAQUIN, MORPHINE, RELAFEN, PENICILLIN, FELDENE, BACLOFEN AND HYDRALAZINE. CURRENT MEDICATIONS: Calcium, multivitamins, aspirin, estradiol, levothyroxine 0.5 mg, amlodipine 5 mg, Lipitor 40 mg, Symbicort 160/4.5, Coreg 12.5 mg, Lasix 20 mg, Boniva 150 mg, Synthroid 0.05 mg, methadone 5 mg b.i.d., multivitamins, nitroglycerin p.r.n., oxycodone 5/325 one p.o. t.i.d., oxygen 3 liters in the morning and throughout the day, Protonix 40 mg, potassium 10 mEq, sumatriptan 100 mg, Brilinta 90 mg b.i.d. has been discontinued. PAIN CLINIC ASSESSMENT/PQRS: 1. The patient has some pain and discomfort involving her knees. She has had knee replacements in 2013. Complains of neck and feet discomfort. The patient is not being treated for rheumatoid arthritis. 2. Height 4 feet 11 inches, weight 203 pounds, BMI is 41. 3. Vital signs: Blood pressure 167/77, heart rate 76, respiratory rate 18, room air saturation 91% and temperature 91. 4. Pain intensity 6-7/10. 5. Fall history: The patient has not fallen in the last 3 months. 6. Blood thinner. The patient is on a medication Plavix. She has had a stent placed. 7. Hypertension. The patient is being [place] [address] PAIN MANAGEMENT CONSULTATION Name: ANNITA ODEN Room: [facility]#: [id number] Admission: 12/25/18 Attend Phys: Sabine Villarreal MD Discharge: Date of : 37 Report #: [id number] 8. Opioids greater than 6 weeks. The patient receives medication from one source the pain clinic. 9. Risk assessment tool, low for opioid use. 10. Functional assessment tool. 11. Recreational drug use. The patient denies. 12. Tobacco: The patient stopped smoking in 1979. 13. Alcohol. The patient denies use of alcoholic beverages. PHYSICAL EXAMINATION: GENERAL: The patient is a well-developed, well-nourished white female, obese. She is alert and oriented x 3. Her affect is appropriate. Speech is fluent. She is accompanied by her son. HEENT: Normocephalic, atraumatic. Extraocular eye muscles intact. Sclerae nonicteric. Mucous membranes are moist. The patient is wearing glasses. The patient has a nasal cannula in place with receiving 2 liters of O2 oxygen. CARDIAC: History of grade 2 systolic ejection murmur in the left and right carotid area. ABDOMEN: Protuberant. Bowel sounds present. EXTREMITIES: Upper extremity muscle strength judged to be 4-/5 for the major muscle groups in the upper extremity and 4/5 for the lower extremity. The patient continues to have pain and discomfort in her low back, hips, and up in the shoulder area. Has kyphosis. Has a very antalgic gait. Walks with a rolling walker at this point. Uses hands to go from a sitting to a standing position. IMPRESSION: 1. Chronic pain. 2. Cardiac history status post two stent placement, treated with Plavix. 3. History of fibromyalgia. 4. Hypoxia. 5. A 3 L of oxygen at home. 6. Diabetes, type 2. 7. Degenerative osteoarthritis involving the knees. 8. Chronic neuropathic pain. 9. Lumbar radicular pain secondary to spinal stenosis. 10. Vertebral compression history. 11. History of Crohn's disease. RECOMMENDATIONS: We discussed treatment options with the patient. Risks and benefits of opioid medications have been discussed. Possible complications of this medication have been discussed. The patient feels that the medication is helpful. It enables her to engage in and get involved in activities she would not be able to without their use. We will continue with her complex medical management to help with her pain. The patient had been noticing some increased bruising. The Brilinta has been discontinued. She is now taking Plavix. The hope is that she has less bruising. As you may recall, [place] [address] PAIN MANAGEMENT CONSULTATION Name: ANNITA ODEN Room: [facility]#: [id number] Admission: 12/25/18 Attend Phys: Sabine Villarreal MD Discharge: Date of : 37 Report #: [id number] Her son is present. The patient has some questions about the scheduling. She would like to have her schedule such that she finds it less complicated for family members to bring her to the pain clinic. We will try to accommodate that. We would like to thank you for letting us participate in her care. We hope she continues to improve. <ELECTRONICALLY SIGNED> By: Sabine Villarreal MD 12/31/18 0909 [id number] [id number]. Alex Villarreal MD /nt
== END ==
LOC: M.PC 04:38
DX: G89.29 Other chronic pain (principal); M54.16 Radiculopathy, lumbar region; M48.061 Spinal stenosis, lumbar region without neurogenic claudication; M17.0 Bilateral primary osteoarthritis of knee; I10 Essential (primary) hypertension; R09.02 Hypoxemia; E11.9 Type 2 diabetes mellitus without complications; Z87.891 Personal history of nicotine dependence; Z79.899 Other long term (current) drug therapy; Z79.891 Long term (current) use of opiate analgesic; Z88.5 Allergy status to narcotic agent; Z88.0 Allergy status to penicillin; Z88.8 Allergy status to other drugs, medicaments and biological substances

== ENCOUNTER 2019-01-08 23:45 | Emergency (ER) | payer MEDICARE, BC ==
[~2019-01-08] VITALS: Ht 149.9 cm; Wt 93.6 kg
[2019-01-08 23:51] VITALS: BP 180/70
[2019-01-09 00:14] LABS: ABSOLUTE BASOPHILS 0.1 thou/uL (0.0-0.2); ABSOLUTE EOSINOPHILS 0.6 thou/uL (0.0-0.7); ABSOLUTE LYMPHOCYTES 1.2 thou/uL (0.8-5.3); ABSOLUTE MONOCYTES 0.8 thou/uL (0.0-1.2); BASOPHILS 0.5 %; EOSINOPHILS 4.9 %; HEMATOCRIT 32.7 % (37.0-47.0); LYMPHOCYTES 10.5 %; MCH 31.4 pg (26.0-34.0); MCHC 33.6 g/dL (28.0-37.0); MCV 93.5 fL (80.0-100.0); MONOCYTES 7.2 %; MPV 9.3 fl. (7.2-11.1); NUCLEATED RBCS 0 /100WBC; PLATELET COUNT* 208 thou/uL (150-400); POLYS 76.9 %; RDW-CV 12.4 % (10.5-14.5); WBC 11.7 thou/uL (4.0-11.0)
[2019-01-09 00:24] LABS: CREATININE 0.9 mg/dL (0.6-1.3); PROTIME 10.5 Seconds (9.20-11.50)
[2019-01-09 00:41] LABS: ALBUMIN 3.7 g/dL (3.4-5.0); TOTAL BILIRUBIN 0.8 mg/dL (<0.1-1.0); TOTAL PROTEIN 7.3 g/dL (6.4-8.2)
[2019-01-09 01:18] LABS: URINE BILIRUBIN NEGATIVE (Negative); URINE BLOOD NEGATIVE (Negative); URINE CLARITY CLEAR; URINE COLOR YELLOW; URINE GLUCOSE-RANDOM NEGATIVE (Negative); URINE KETONES NEGATIVE (Negative); URINE LEUKOCYTES-REFLEX NEGATIVE (Negative); URINE NITRITE-REFLEX NEGATIVE (Negative); URINE PROTEIN 1+ (Negative); URINE SPECIFIC GRAVITY 1.015 (1.005-1.030); URINE UROBILINOGEN 0.2 E.U./dl (0.2-1.0)
[2019-01-09 02:50] VITALS: BP 168/72
--- NOTE | 2019-01-09 14:36 | EKG ---
[place] [address] ELECTROCARDIOGRAM REPORT Name: ANNITA ODEN Room: [facility]#: [id number] Admission: 01/08/19 Attend Phys: Discharge: 01/09/19 Date of : 37 Report #: [id number] THIS REPORT FOR: //name// [facility] ED Test Date: 2019-01-08 Test Time: 23:59:45 Pat Name: ANNITA ODEN Department: Room: [facility] Gender: F Or Director: MA : 1935 Requested By: Sonya Santos Order Number: [id number] MD: Jonny Ramirez Measurements Intervals [place] Rate: 85 P: 63 IA: 175 QRS: 6 QRSD: 92 T: 64 QT: 381 QTc: 453 Interpretive Statements Sinus rhythm Anterior infarct, old Compared to ECG 06/11/2018 04:39:51 No significant changes Electronically Signed On 01-09-2019 14:36:15 CDT by Jonny Ramirez [email or web address] <ELECTRONICALLY SIGNED> By: Jonny Ramirez MD, [facility] 01/09/19 [phone] Jonny Ramirez MD, FACC /EPI
== END 2019-01-09 02:50 | disposition home or self-care (01) ==
LOC: M.ERS 23:45 → M.TBA-ER 01-09 02:11 → M.ERS 01-09 02:11
PROVIDERS: Emergency Medicine
DX: K56.609 Unspecified intestinal obstruction, unspecified as to partial versus complete obstruction (principal); Z88.6 Allergy status to analgesic agent; Z88.1 Allergy status to other antibiotic agents; Z88.0 Allergy status to penicillin; Z88.2 Allergy status to sulfonamides; Z88.8 Allergy status to other drugs, medicaments and biological substances

== ENCOUNTER 2019-03-06 07:23 | Emergency (ER) | payer MEDICARE, BC ==
[~2019-03-06] VITALS: Ht 154.9 cm; Wt 90.3 kg
[2019-03-06] MEDS ORDERED: ISOSORBIDE MONO30 M1 PO (07:38)
[2019-03-06] MEDS ORDERED: OXYCODON-ACETA1 EAC1 PO (07:39)
[2019-03-06] MEDS ORDERED: IPRAT-ALBUT 0.5-3 ML INH (07:40)
[2019-03-06 08:56] LABS: HEMATOCRIT 39.1 % (37.0-47.0); HEMOGLOBIN 12.9 gm/dL (12.0-15.0); MCH 30.5 pg (26.0-34.0); MCHC 32.9 g/dL (28.0-37.0); MCV 92.5 fL (80.0-100.0); MPV 8.4 fl. (7.2-11.1); NUCLEATED RBCS 0 /100WBC; PLATELET COUNT* 266 thou/uL (150-400); RBC 4.22 mil/uL (4.20-5.00); RDW-CV 12.7 % (10.5-14.5); WBC 10.6 thou/uL (4.0-11.0)
[2019-03-06 09:07] LABS: CALCIUM 9.4 mg/dL (8.5-10.1); CREATININE 0.9 mg/dL (0.6-1.3); POTASSIUM 4.2 mmol/L (3.5-5.1)
[2019-03-06 09:11] LABS: ALBUMIN 3.5 g/dL (3.4-5.0); TOTAL BILIRUBIN 0.8 mg/dL (<0.1-1.0); TOTAL PROTEIN 7.4 g/dL (6.4-8.2)
[2019-03-06] MEDS ORDERED: PREDNISOLONE ACE5 ML EA. EYE (09:21)
[2019-03-06 10:04] LABS: URINE BILIRUBIN NEGATIVE (Negative); URINE BLOOD TRACE (Negative); URINE CLARITY CLEAR; URINE COLOR YELLOW; URINE GLUCOSE-RANDOM NEGATIVE (Negative); URINE KETONES NEGATIVE (Negative); URINE LEUKOCYTES-REFLEX NEGATIVE (Negative); URINE NITRITE-REFLEX NEGATIVE (Negative); URINE PROTEIN 3+ (Negative); URINE SPECIFIC GRAVITY 1.025 (1.005-1.030); URINE UROBILINOGEN 0.2 E.U./dl (0.2-1.0)
[2019-03-06 10:07] LABS: ABSOLUTE EOSINOPHILS 0.1 thou/uL (0.0-0.7); ABSOLUTE LYMPHOCYTES 0.7 thou/uL (0.8-5.3); ABSOLUTE MONOCYTES 0.1 thou/uL (0.0-1.2); ABSOLUTE NEUTROPHILS 9.6 thou/uL (1.6-8.1); METAMYELOCYTES 1 %; PLATELET ESTIMATE ADEQUATE
[2019-03-06 10:12] LABS: BACTERIA-REFLEX 1-9 Few /HPF (None Seen); CASTS None Seen /LPF (None Seen); CRYSTALS None Seen /LPF (None Seen); MUCUS 4-6 Moderate strn/LPF (None Seen); SQUAMOUS 0-3 Few /LPF (0-3); URINE RBC 0-2 Rare /HPF (0-2); URINE WBC-REFLEX 0-5 Rare /HPF (0-5)
[2019-03-06 11:16] VITALS: BP 196/66
--- NOTE | 2019-03-06 13:45 | EKG ---
[place] [address] ELECTROCARDIOGRAM REPORT Name: ANNITA ODEN Room: [facility] [place])#: [id number] Admission: 03/06/19 Attend Phys: Discharge: 03/06/19 Date of : 37 Report #: [id number] THIS REPORT FOR: //name// [facility] ED Test Date: 2019-03-06 Test Time: 07:41:49 Pat Name: ANNITA ODEN Department: Room: Gender: F Back End Architect: SANDI : 1935 Requested By: Jeremy Flores Order Number: [id number] MD: Dash Gaytan Measurements Intervals [place] Rate: 87 P: 40 NM: 171 QRS: -8 QRSD: 91 T: 65 QT: 383 QTc: 461 Interpretive Statements Sinus rhythm Anteroseptal infarct, old Minimal ST depression, lateral leads Compared to ECG 01/08/2019 23:59:45 ST (T wave) deviation now present Myocardial infarct finding still present Electronically Signed On 03-06-2019 13:44:56 SUBSTATION TECHNICIAN by Dash Gaytan [email or web address] <ELECTRONICALLY SIGNED> By: Dash Gaytan MD, FAC 03/06/19 1344 0741 0741 Dash Gaytan MD, [facility] /EPI
[2019-03-12] MEDS ORDERED: OXYCODONE-ACET1 EACH PO ×2 (09:53→09:55)
[2019-03-12] MEDS ORDERED: METHADONE HCL5 MG PO ×2 (09:53→09:55)
[2019-03-12] MEDS ORDERED: OXYCODON-ACETA1 EAC1 PO ×2 (09:53→09:55)
== END 2019-03-06 11:16 | disposition home or self-care (01) ==
LOC: M.ERS 07:23
PROVIDERS: Family Medicine
DX: R10.84 Generalized abdominal pain (principal); R11.2 Nausea with vomiting, unspecified; Z88.6 Allergy status to analgesic agent; Z88.0 Allergy status to penicillin; Z88.2 Allergy status to sulfonamides; Z88.8 Allergy status to other drugs, medicaments and biological substances; M19.90 Unspecified osteoarthritis, unspecified site

== ENCOUNTER → 2019-03-12 | Outpatient (CLI) | payer MEDICARE, BC ==
[~2019-03-12] MED LIST changes: +IPRAT-ALBUT 0.5-3 ML INH; +ISOSORBIDE MONO30 M1 PO; +OXYCODON-ACETA1 EAC1 PO; +PREDNISOLONE ACE5 ML EA. EYE
--- NOTE | ~2019-03-12 | PAINCON ---
[address] [address] PAIN MANAGEMENT CONSULTATION Name: ANNITA ODEN [id number] Admission: 03/12/19 Attend Phys: Sabine Villarreal MD Discharge: Date of : 37 Report #: [id number] THIS REPORT FOR: //name// CC: Sabine Goodrich DATE OF SERVICE: 03/12/2019 CHIEF COMPLAINT: Here for medications, things are going pretty well. HISTORY: The patient is an 83-year-old female who has been followed in the pain clinic. She does continue to have chronic pain. Does have some problems with her pulmonary status. She is on oxygen 3 liters. Has pain, which remains problematic, it involves her hips and legs. She has pain in the low back area as well as some generalized joint problems. The right hip has been problematic for a number of years. She has had cataract surgery. This was on left and right side. She is contemplating dental work in the future. She is waiting for clearance from her eye doctors. Does have some shoulder pain as well. Feels that her pain is 30%-50% improved with her current medications. Feels that the methadone is helpful. The oxycodone is beneficial as well. She is not having any problems with these medications. There are no problems with her being sedated. There is no problem with her thinking clearly. Does not cause any problems with her balance. ALLERGIES: FENTANYL, INDOMETHACIN, LEVAQUIN, MORPHINE, RELAFEN, PENICILLIN, FELDENE, BACLOFEN, HYDRALAZINE. CURRENT MEDICATIONS: Calcium, multivitamins, aspirin, estradiol, levothyroxine 0.5 mg, amlodipine 5 mg, Lipitor 40 mg, Symbicort 160/4.5, Coreg 12.5 mg, Lasix 20 mg, Boniva 150 mg, Synthroid 0.5 mg, methadone 5 mg b.i.d., multivitamins, nitroglycerin p.r.n., oxycodone 5/325 one p.o. t.i.d., oxygen 3 liters in the morning and throughout the day, Protonix 40 mg, potassium 10 mEq, sumatriptan 10 mg, Brilinta 90 mg b.i.d. This was used, but has been discontinued. PAIN CLINIC ASSESSMENT AND PQRS: 1. The patient has some pain and discomfort involving her knees. She has had knee replacements in 2013. Has complained of neck and foot discomfort. The patient is not being treated for rheumatoid arthritis. 2. Height 4 feet 11 inches, weight 204 pounds, BMI is 40. 3. Vital Signs: Blood pressure 164/63, heart rate 69, respiratory rate 18, room air saturation 93%, temperature 98.4. 4. Pain intensity 5/10. 5. Fall history: The patient has not fallen in the last 3 months. 6. Blood thinner. The patient is not on a blood thinning medication. She has had stent placement, has been on Plavix. 7. Hypertension. The patient is [place] [address] PAIN MANAGEMENT CONSULTATION Name: AKSHATANNITA Room: [facility]#: [id number] Admission: 03/12/19 Attend Phys: Sabine Villarreal MD Discharge: Date of : 37 Report #: [id number] 8. Opioids greater than 6 weeks. The patient received medication from [facility] pain clinic. 9. Risk assessment tool, low for opioid use. 10. Functional assessment tool reviewed and low for opioid use. 11. Recreational drug use: The patient denies. 12. Tobacco, stopped smoking in 1979. 13. Alcohol. The patient denies use of alcoholic beverages. PHYSICAL EXAMINATION: GENERAL: The patient is a well-developed, well-nourished white female. Appears her stated age. She is alert and oriented x 3. She is accompanied by her son. HEENT: Normocephalic, atraumatic. Extraocular eye muscles intact. Sclerae nonicteric. Mucous membranes are moist. The patient wears glasses. Does have nasal cannula in her nose and is receiving oxygen 2 liters. HEART: History of cardiac problems with grade 2 systolic ejection murmur on the left and right carotid area. ABDOMEN: Protuberant. Bowel sounds present. EXTREMITIES: Upper extremity muscle strength judged to be 4-/5 for the major muscle groups in the upper extremity and 4/5 for the lower extremity. The patient is in a wheelchair. Complains of pain in the lower portion of her back pain. Complains of pain in her hips. Has some pain in her shoulder. Right hip is most problematic. IMPRESSION: 1. Recent cataract surgery. Things are going well. 2. Chronic pain. 3. Cardiac history, status post 2 stent placement and treated with Plavix. 4. History of fibromyalgia. 5. Hypertension. 6. A 3 liters of oxygen via nasal cannula at home. 7. Diabetes type 2. 8. Degenerative osteoarthritis involving the knees. 9. Chronic neuropathic pain. 10. Lumbar radicular pain secondary to spinal stenosis. 11. Vertebral compression fracture history. 12. History of Crohn's disease. RECOMMENDATIONS: We discussed treatment options with the patient. We will proceed with a renewal of her medications. She finds the methadone medication is helpful. Not having any problems with her sensorium. She also finds oxycodone beneficial. Keeps her medications in a guarded area. She is aware that opioid medications can become less effective over time because of development of tolerance. She is receiving a blood thinning medication. She does have stents in place. She will continue with her medications. A script for her medications of methadone 5 mg 1 p.o. b.i.d. has been written. The patient will also continue with oxycodone 5 mg 1 p.o. t.i.d. [place] [address] PAIN MANAGEMENT CONSULTATION Name: AKSHATANNITA Room: [facility]#: [id number] Admission: 03/12/19 Attend Phys: Sabine Villarreal MD Discharge: Date of : 37 Report #: [id number] if she has any concerns. We would like to thank you for letting us participate in her care. We hope she continues to improve. By: 1104 [id number]. Alex Villarreal MD /JENI
== END ==
LOC: M.PC 08:59
DX: G89.29 Other chronic pain (principal); I10 Essential (primary) hypertension; E11.9 Type 2 diabetes mellitus without complications; M17.0 Bilateral primary osteoarthritis of knee; M54.16 Radiculopathy, lumbar region; K50.90 Crohn's disease, unspecified, without complications

== ENCOUNTER → 2019-05-07 | Outpatient (CLI) | payer MEDICARE, BC ==
[~2019-05-07] MED LIST changes: +NARCAN4 MG NARES
--- NOTE | 2019-05-26 08:57 | PAINCON ---
[address] [address] PAIN MANAGEMENT CONSULTATION Name: ANNITA ODEN Room: [facility]#: [id number] Admission: 05/07/19 Attend Phys: Sabine Villarreal MD Discharge: Date of : 39 Report #: [id number] THIS REPORT FOR: //name// cc: Gallito Goodrich Steve T. DO ~ THIS REPORT FOR: //name// CC: Sabine Goodrich DO DATE OF SERVICE: 05/07/2019 CHIEF COMPLAINT: Continued low back and joint pain. HISTORY: The patient is an 84-year-old female who has been followed in the pain clinic. She has a long history of chronic pain. She also has problems with her pulmonary status. She continues to use oxygen 3 liters per minute. She has pain in her hips as well as her legs. Does have some pain in the low back area as well as some generalized joint problems. The hip pain has been problematic for a number of years. Pain is mostly on the left side and can be on the right side. She rates her pain as a 6/10. It is problematic with walking, sitting, standing, and with activities of daily living. Her medications help to decrease her pain. She is having no complications. No real problems with bowel or bladder function changes. ALLERGIES: FENTANYL, INDOMETHACIN, LEVAQUIN, MORPHINE, RELAFEN, PENICILLIN, FELDENE, BACLOFEN, HYDRALAZINE. CURRENT MEDICATIONS: Calcium, multivitamins, aspirin, estradiol, levothyroxine 0.5 mg, amlodipine 5 mg, Lipitor 40 mg, Symbicort 160/4.5, Coreg 12.5 mg, Lasix 20 mg, Boniva 150 mg, Synthroid 0.5 mg, methadone 5 mg b.i.d., multivitamins, nitroglycerin, oxycodone 5/325 one p.o. t.i.d., oxygen 3 liters in the morning and throughout the day, Protonix 40 mg, potassium 10 mEq, sumatriptan 10 mg, and Brilinta. PAIN CLINIC ASSESSMENT AND PQRS: 1. The patient has some pain and discomfort in her knees. She has had knee replacements in 2013. Complains of pain in her neck as well as in her foot. The patient is not being treated for rheumatoid arthritis. 2. Height 4 foot 11, weight 198 pounds, and BMI is 40. 3. Vital Signs: Blood pressure 95/31 - at home. 4. Heart rate 64, respiratory rate 18, room air saturation is 98% on 2 liters of oxygen, temperature 97.7. 5. Pain intensity 6/10. 6. Fall history: The patient has not fallen in the last 3 [place] [address] PAIN MANAGEMENT CONSULTATION Name: ANNITA ODEN Room: [facility]#: [id number] Admission: 05/07/19 Attend Phys: Sabine Villarreal MD Discharge: Date of : 39 Report #: [id number] 7. Blood thinner. The patient is on a blood thinning medication. She does use Plavix because of stent placement. 8. Hypertension. The patient is being treated for hypertension. 9. Opioids greater than 6 weeks. The patient received medication from [facility], the pain clinic. 10. Risk assessment tool, low for opioid use. 11. Functional assessment tool has been reviewed. 12. Recreational drug use: The patient denies. 13. Tobacco: The patient stopped smoking in 1979. 14. Alcohol. The patient denies use of alcoholic beverages. PHYSICAL EXAMINATION: GENERAL: The patient is a well-developed, well-nourished white female. Appears her stated age. She is alert and oriented x 3. Her affect is appropriate. Speech is fluent. HEENT: Normocephalic, atraumatic. Extraocular eye muscles intact. Sclerae are nonicteric. Mucous membranes are moist. The patient is accompanied by her son. She is wearing oxygen via nasal cannula, receiving oxygen via nasal cannula at 2 liters. HEART: Grade 2 systolic ejection murmur on the left and right carotid area. ABDOMEN: Protuberant. Bowel sounds present. EXTREMITIES: Upper extremity muscle strength judged to be 4/5 for the major muscle groups in the upper extremity and 4/5 for the lower extremity. The patient is in a wheelchair. Complains of pain in the lower portion of her back. Complains of pain in her hips. Has some pain in her shoulders. IMPRESSION: 1. Chronic pain treated with opioid. 2. Cardiac history status post two stent placements with Plavix. 3. History of fibromyalgia. 4. Hypertension. 5. Three liters of oxygen via nasal cannula at home. 6. Type 2 diabetes. 7. Degenerative osteoarthritis involving the knees. 8. Chronic neuropathic pain. 9. Lumbar radicular pain secondary to spinal stenosis. 10. Vertebral compression fracture history. 11. History of Crohn's disease. RECOMMENDATIONS: We discussed treatment options with the patient. Risks and benefits of her medications were reviewed. She feels her medications continue to be helpful. She is not finding problems with sedation. She is able to engage in more activities with her medications than she is without them. She keeps her medications in a guarded area. She is not showing signs of addiction. She has taken the medication as prescribed. We will again review the use of opioids with the patient and her son. These medications can become less [address] [place] [address] PAIN MANAGEMENT CONSULTATION Name: ANNITA ODEN Room: [facility]#: [id number] Admission: 05/07/19 Attend Phys: Sabine Villarreal MD Discharge: Date of : 39 Report #: [id number] effective over time secondary to development of tolerance. A script for methadone 5 mg 1 p.o. b.i.d. has been written. The patient will also continue with oxycodone. We will increase it to 7.5 mg tablets 1 p.o. t.i.d. and note its efficacy. We would like to thank you for letting us participate in her care. We hope she continues to improve. <ELECTRONICALLY SIGNED> By: Sabine Villarreal MD 05/26/19 [id number]. Alex Villarreal MD /nt
== END ==
LOC: M.PC 02:13
DX: M54.5 Low back pain (principal); M79.7 Fibromyalgia; I10 Essential (primary) hypertension; E11.9 Type 2 diabetes mellitus without complications; M19.90 Unspecified osteoarthritis, unspecified site; G62.9 Polyneuropathy, unspecified

== ENCOUNTER → 2019-07-27 | Outpatient (CLI) | payer MEDICARE, BC | LOC: M.RAD 10:00 | DX: R10.9 Unspecified abdominal pain (principal) ==

== ENCOUNTER → 2019-07-28 | Outpatient (CLI) | payer MEDICARE, BC | LOC: M.RAD 08:18 | DX: M47.817 Spondylosis without myelopathy or radiculopathy, lumbosacral region (principal); M41.86 Other forms of scoliosis, lumbar region; R63.4 Abnormal weight loss ==

== ENCOUNTER → 2020-06-30 | Outpatient (CLI) | payer MEDICARE, BC ==
[~2020-06-30] MED LIST changes: +OZEMPIC1 MG/0.75 SUBQ; +PERCOCET 5-3251 EACH PO
== END ==
LOC: M.PC 12:30
PROVIDERS: ATTEND Anesthesiology Pain Medicine
DX: I10 Essential (primary) hypertension (principal); E11.9 Type 2 diabetes mellitus without complications; M17.0 Bilateral primary osteoarthritis of knee; I21.9 Acute myocardial infarction, unspecified; M54.5 Low back pain; M48.061 Spinal stenosis, lumbar region without neurogenic claudication; M79.7 Fibromyalgia; M79.2 Neuralgia and neuritis, unspecified; Z95.818 Presence of other cardiac implants and grafts

== ENCOUNTER → 2020-08-16 | Outpatient (CLI) | payer MEDICARE, BC | LOC: M.PC 08:20 | PROVIDERS: ATTEND Anesthesiology Pain Medicine | DX: G89.29 Other chronic pain (principal); I10 Essential (primary) hypertension; M17.0 Bilateral primary osteoarthritis of knee; E11.40 Type 2 diabetes mellitus with diabetic neuropathy, unspecified; M54.16 Radiculopathy, lumbar region; M48.061 Spinal stenosis, lumbar region without neurogenic claudication; Z98.61 Coronary angioplasty status ==

== ENCOUNTER → 2020-10-11 | Outpatient (CLI) | payer MEDICARE, BC | LOC: M.PC 08:20 | PROVIDERS: ATTEND Anesthesiology Pain Medicine | DX: G89.29 Other chronic pain (principal); I10 Essential (primary) hypertension; E11.9 Type 2 diabetes mellitus without complications; M17.0 Bilateral primary osteoarthritis of knee; M54.16 Radiculopathy, lumbar region; M48.061 Spinal stenosis, lumbar region without neurogenic claudication; Z79.899 Other long term (current) drug therapy; Z79.891 Long term (current) use of opiate analgesic ==

== ENCOUNTER → 2020-12-29 | Outpatient (CLI) | payer MEDICARE, BC ==
[~2020-12-29] MED LIST changes: +CALCIUM CARBONATE PO; -CYMBALTA20 MG PO; +DILTIAZEM ER120 MG PO; +ELIQUIS5 MG PO; +HYDRALAZINE 5050 MG PO; +LIPITOR 20 MG T20 M1 PO; -LIPITOR40 MG PO; +MULTI-VITAMIN1 EAC5 PO; +RENAL-VITE TAB0.8 MG PO; -SUMATRIPTAN SU100 MG PO; +TRULICITY0.75 MG/0. SUBQ; +VITAMIN D31250 MC1 PO
== END ==
LOC: M.PC 10:09
PROVIDERS: ATTEND Anesthesiology Pain Medicine
DX: G89.29 Other chronic pain (principal); M54.16 Radiculopathy, lumbar region; I10 Essential (primary) hypertension; E11.9 Type 2 diabetes mellitus without complications; M17.0 Bilateral primary osteoarthritis of knee; M48.061 Spinal stenosis, lumbar region without neurogenic claudication; Z88.0 Allergy status to penicillin; Z88.8 Allergy status to other drugs, medicaments and biological substances; Z79.899 Other long term (current) drug therapy